=== PATIENT | female | born 1940 | race Caucasian/White ===

== ENCOUNTER 2016-10-18 19:12 | Emergency (ER) | payer OTHER, MEDICAID ==
[~2016-10-18] VITALS: Ht 167.6 cm; Wt 63.5 kg
[2016-10-18] MEDS ORDERED: BUSP5TA (19:28)
[2016-10-18] MEDS ORDERED: LOSA50TA20 (19:28)
[2016-10-18] MEDS ORDERED: NITR0.4S14 PO (19:28)
[2016-10-18] MEDS ORDERED: GABA-282 (19:28)
[2016-10-18] MEDS ORDERED: NITR0.4D6 (19:28)
[2016-10-18] MEDS ORDERED: OMEP40CA2 (19:28)
[2016-10-18] MEDS ORDERED: AMLO5TAB2 (19:28)
[2016-10-18] MEDS ORDERED: CARV6.25 (19:28)
[2016-10-18] MEDS ORDERED: PRAV80TA2 PO (19:28)
[2016-10-18 21:47] LABS: INR 1.04
[2016-10-18 21:53] LABS: BASO % 0.2 % (0.0-1.0); EOS % 0.2 % (0.0-3.0); LARGE UNSTAINED CELL # 0.1 K/mm3 (0.0-0.4); LARGE UNSTAINED CELL % 0.7 % (0.0-4.0); LYMPH # 0.6 K/mm3 (1.5-4.5); LYMPH % 6.9 % (24.0-44.0); MEAN CORPUSCULAR HEMOGLOBIN 29.2 pg (27.0-33.0); MEAN CORPUSCULAR VOLUME 91.2 fl (80.0-96.0); MONO # 0.3 K/mm3 (0.0-0.8); MONO % 3.5 % (0.0-5.0); NEUTROPHILS # 6.8 K/mm3 (1.8-7.7); NEUTROPHILS % 88.5 % (36.0-66.0); PLATELET COUNT, AUTOMATED 167 k/mm3 (150-450); WHITE BLOOD COUNT 7.7 K/mm3 (4.0-10.0)
[2016-10-18 22:08] LABS: ANION GAP 7 MEQ/L (8-16); BLOOD UREA NITROGEN 11 MG/DL (7-18); CALCIUM LEVEL 7.8 MG/DL (8.8-10.2); CARBON DIOXIDE LEVEL 24 MEQ/L (21-32); CHLORIDE LEVEL 110 MEQ/L (98-107); CREATININE FOR GFR 0.57 MG/DL (0.55-1.02); GLOMERULAR FILTRATION RATE > 60.0 (>39); GLUCOSE, FASTING 108 MG/DL (83-110); MAGNESIUM LEVEL 1.9 MG/DL (1.8-2.4); POTASSIUM SERUM 3.6 MEQ/L (3.5-5.1); SODIUM LEVEL 141 MEQ/L (136-145)
[2016-10-18 23:41] VITALS: O2SAT 98
[2016-10-19 00:30] VITALS: BP 132/78
[2016-10-19] MEDS ORDERED: VALI2TAB PO (00:39)
--- NOTE | 2016-10-19 09:19 | ECGEPIP ---
Stationary ECG Study [facility] - ED Test Date: 2016-10-18 Pat Name: BONNIE ROGER Department: Room: - Gender: F Field Sales Executive: AlcantarB: 1940 Requested By: DELFINO Becker Order Number: [id number] Reading MD: Donald Davidson Measurements Intervals [place] Rate: 86 P: 48 NH: 141 QRS: 5 QRSD: 89 T: 9 QT: 358 QTc: 430 Interpretive Statements SINUS RHYTHM NO PRIORS Electronically Signed On 10-19-2016 9:19:45 EDT by Donald Davidson
--- NOTE | 2016-10-19 14:49 | REP ---
Clinical: Dizziness. Comparison: None. Findings: Age-related atrophy and microvascular ischemic changes are appreciated. The ventricles and sulci are symmetric. Hurd-white differentiation is maintained. There is no evidence for acute intracranial hemorrhage, mass/mass effect, pathology or infarction. No extra-axial fluid collection. Calvarium is intact. Paranasal sinuses and mastoid air cells are clear. Impression: Age related atrophy and microvascular ischemic changes. No acute intracranial hemorrhage, infarction, or mass/mass effect. Signed by Dontae Waite MD 10/19/2016 02:40 P
== END 2016-10-19 00:55 | disposition home or self-care (01) ==
LOC: M ED 20:55
DX: R42 Dizziness and giddiness (principal); M54.2 Cervicalgia; E11.9 Type 2 diabetes mellitus without complications; Z79.899 Other long term (current) drug therapy
CPT/HCPCS: 36415; 70450; 80053; 81001; 82043; 82550; 82553; 83036; 83735; 84484; 85025; 85610; 85730; 87086; 93005; 96374; 99284; J3360

== ENCOUNTER → 2016-10-18 | Outpatient (REF) | payer OTHER, MEDICAID ==
[~2016-10-18] MED LIST: AMLO5TAB2; BUSP5TA; CARV6.25; GABA-282; LOSA50TA20; NITR0.4D6; NITR0.4S14 PO; OMEP40CA2; PRAV80TA2 PO; VALI2TAB PO
[2016-10-18 12:09] LABS: ALBUMIN 3.5 GM/DL (3.2-5.2); ALBUMIN/GLOBULIN RATIO 1.09 (1.00-1.93); ALKALINE PHOSPHATASE 84 U/L (45-117); ALT/SGPT 19 U/L (12-78); ANION GAP 8 MEQ/L (8-16); AST/SGOT 13 U/L (15-37); BILIRUBIN,TOTAL 0.3 MG/DL (0.2-1.0); BLOOD UREA NITROGEN 13 MG/DL (7-18); CARBON DIOXIDE LEVEL 25 MEQ/L (21-32); CHLORIDE LEVEL 109 MEQ/L (98-107); CREATININE FOR GFR 0.66 MG/DL (0.55-1.02); GLOMERULAR FILTRATION RATE > 60.0 (>39); GLUCOSE, FASTING 179 MG/DL (83-110); POTASSIUM SERUM 4.2 MEQ/L (3.5-5.1); SODIUM LEVEL 142 MEQ/L (136-145); TOTAL PROTEIN 6.7 GM/DL (6.4-8.2)
== END ==
LOC: M SFHCPLAZ 08:03
PROVIDERS: ATTEND Family Medicine
DX: E11.9 Type 2 diabetes mellitus without complications (principal)

== ENCOUNTER → 2017-02-09 | Outpatient (CLI) | payer OTHER, MEDICAID ==
[~2017-02-09] MED LIST changes: -AMLO5TAB2; +AMLO5TAB2 PO; -BUSP5TA; +BUSP5TA PO; -CARV6.25; +CARV6.25 PO; +FERR325T3 PO; -GABA-282; +GABA-282 PO; +GABA600T PO; -LOSA50TA20; +LOSA50TA20 PO; -NITR0.4D6; +NITR0.4D6 TOP; -OMEP40CA2; +OMEP40CA2 PO; +RANI1TAB38 PO; +TUMS500C PO
[2017-02-09 18:29] LABS: BASO % 0.5 % (0.0-1.0); EOS # 0.1 K/mm3 (0.0-0.50); EOS % 1.9 % (0.0-3.0); LARGE UNSTAINED CELL # 0.1 K/mm3 (0.0-0.4); LARGE UNSTAINED CELL % 1.5 % (0.0-4.0); LYMPH % 14.2 % (24.0-44.0); MEAN CORPUSCULAR HEMOGLOBIN 29.1 pg (27.0-33.0); MEAN CORPUSCULAR HGB CONC 31.7 g/dl (32.0-36.5); MEAN CORPUSCULAR VOLUME 91.7 fl (80.0-96.0); MONO # 0.4 K/mm3 (0.0-0.8); MONO % 6.1 % (0.0-5.0); NEUTROPHILS # 4.8 K/mm3 (1.8-7.7); NEUTROPHILS % 75.8 % (36.0-66.0); PLATELET COUNT, AUTOMATED 182 k/mm3 (150-450); RED CELL DISTRIBUTION WIDTH 15.2 % (11.5-14.5); WHITE BLOOD COUNT 6.4 K/mm3 (4.0-10.0)
[2017-02-09 18:49] LABS: ALBUMIN/GLOBULIN RATIO 1.18 (1.00-1.93); ALKALINE PHOSPHATASE 73 U/L (45-117); ALT/SGPT 22 U/L (12-78); ANION GAP 7 MEQ/L (8-16); AST/SGOT 15 U/L (15-37); BILIRUBIN,TOTAL 0.4 MG/DL (0.2-1.0); BLOOD UREA NITROGEN 14 MG/DL (7-18); CALCIUM LEVEL 8.9 MG/DL (8.8-10.2); CARBON DIOXIDE LEVEL 27 MEQ/L (21-32); CHLORIDE LEVEL 109 MEQ/L (98-107); CHOLESTEROL LEVEL 182 MG/DL (<200); CREATININE FOR GFR 0.76 MG/DL (0.55-1.02); GLOMERULAR FILTRATION RATE > 60.0 (>39); GLUCOSE, FASTING 186 MG/DL (83-110); POTASSIUM SERUM 4.8 MEQ/L (3.5-5.1); SODIUM LEVEL 143 MEQ/L (136-145); TOTAL PROTEIN 7.4 GM/DL (6.4-8.2); TRIGLYCERIDES LEVEL 251 MG/DL (<150)
== END ==
LOC: M SMT 13:48
PROVIDERS: ATTEND Family Medicine
DX: R19.7 Diarrhea, unspecified (principal); E78.5 Hyperlipidemia, unspecified

== ENCOUNTER → 2017-02-11 | Outpatient (REF) | payer OTHER, MEDICAID | LOC: M LAB REF 15:17 | PROVIDERS: ATTEND Family Medicine | DX: R19.7 Diarrhea, unspecified (principal); K92.1 Melena ==

== ENCOUNTER → 2017-02-23 | Outpatient (CLI) | payer OTHER, MEDICAID ==
--- NOTE | 2017-02-23 22:04 | REP ---
Clinical: Left-sided sciatica. Technique: AP, lateral, bilateral oblique, flexion/extension, and coned-down views of the lumbosacral spine. Comparison: 04/22/2015. Findings: Moderate to advanced multilevel degenerative disc osteophyte complexes are appreciated primarily involving the L3-4, L4-5, and L5-S1 levels. Findings include hypertrophic facet changes, marginal osteophytes, endplate sclerosis, disc space narrowing, and chronic, stable grade 1 anterolisthesis at the L4-5 level of approximately 3 mm. No acute fracture / compression injury. Impression: Moderate to advanced multilevel degenerative changes as described above including chronic grade 1 anterolisthesis at the L4-5 level which remain stable. Signed by Dontae Waite MD 02/23/2017 09:56 P
== END ==
LOC: M SMT 13:58
PROVIDERS: ATTEND Family Medicine
DX: M54.32 Sciatica, left side (principal)

== ENCOUNTER 2017-04-07 09:50 | Outpatient (CLI) | payer OTHER, MEDICAID ==
[~2017-04-07] VITALS: Ht 165.1 cm; Wt 63.5 kg
[2017-04-07] MEDS ORDERED: PROPOFOL 500 MG/50 ML VIAL As Ordered ONE (09:53)
[2017-04-07] MEDS ORDERED: NS 1,000 ML IV ONE (10:00)
[2017-04-07] MEDS ORDERED: LIDOCAINE 2% INJ 100 MG/5 ML SDV (FOR ANES.) As Ordered ONE (10:08)
[2017-04-07] MEDS ORDERED: NS 1,000 ML IV SCH (10:30)
--- NOTE | 2017-04-07 10:57 | ROOR ---
Patient Name: Ashley Wang Procedure Date: 04/07/2017 10:30 AM Date of : 1940 Age: 77 Room: [facility] Gender: Female Note Status: Finalized Procedure: Upper GI endoscopy Indications: Iron deficiency anemia Providers: Ever Yan Jr, MD Referring MD: Ines ALVAREZ DO Requesting Provider: Medicines: Propofol per Anesthesia Complications: No immediate complications. Procedure: Pre-Anesthesia Assessment: - Prior to the procedure, a History and Physical was performed, and patient medications and allergies were reviewed. The patient is competent. The risks and benefits of the procedure and the sedation options and risks were discussed with the patient. All questions were answered and informed consent was obtained. Patient identification and proposed procedure were verified by the physician and the nurse in the pre-procedure area and in the procedure room. Mental Status Examination: alert and oriented. Airway Examination: normal oropharyngeal airway and neck mobility. Respiratory Examination: clear to auscultation. CV Examination: normal. ASA Grade Assessment: II - A patient with mild systemic disease. After reviewing the risks and benefits, the patient was deemed in satisfactory condition to undergo the procedure. The anesthesia plan was to use moderate sedation / analgesia (conscious sedation). Immediately prior to administration of medications, the patient was re-assessed for adequacy to receive sedatives. The heart rate, respiratory rate, oxygen saturations, blood pressure, adequacy of pulmonary ventilation, and response to care were monitored throughout the procedure. The physical status of the patient was re-assessed after the procedure. The Endoscope was introduced through the mouth, and advanced to the second part of duodenum. The upper GI endoscopy was accomplished without difficulty. The patient tolerated the procedure well. Findings: The upper third of the esophagus, middle third of the esophagus and lower third of the esophagus were normal. A small hiatal hernia was present. The cardia, gastric fundus and gastric body were normal. Striped mildly erythematous mucosa was found in the gastric antrum and in the prepyloric region of the stomach. Biopsies were taken with a cold forceps for histology. The duodenal bulb, first portion of the duodenum and second portion of the duodenum were normal. Impression: - Normal upper third of esophagus, middle third of esophagus and lower third of esophagus. - Small hiatal hernia. - Normal cardia, gastric fundus and gastric body. - Erythematous mucosa in the antrum and prepyloric region of the stomach. Biopsied. - Normal duodenal bulb, first portion of the duodenum and second portion of the duodenum. Recommendation: - Discharge patient to home (ambulatory). - Return to my office in 10 years. Ever Yan MD Ever Yan Jr, MD 04/07/2017 10:57:23 AM This report has been signed electronically. Number of Addenda: 0 Note Initiated On: 04/07/2017 10:30 AM Estimated Blood Loss: Estimated blood loss: none.
--- NOTE | 2017-04-07 11:00 | ROOR ---
Patient Name: Ashley Wang Procedure Date: 04/07/2017 10:31 AM Date of : 1940 Age: 77 Room: [facility] Gender: Female Note Status: Finalized Procedure: Colonoscopy Indications: Change in bowel habits Providers: Ever Yan Jr, MD Referring MD: Ines ALVAREZ DO Requesting Provider: Medicines: Propofol per Anesthesia Complications: No immediate complications. Procedure: Pre-Anesthesia Assessment: - Prior to the procedure, a History and Physical was performed, and patient medications and allergies were reviewed. The patient is competent. The risks and benefits of the procedure and the sedation options and risks were discussed with the patient. All questions were answered and informed consent was obtained. Patient identification and proposed procedure were verified by the physician and the nurse in the pre-procedure area and in the procedure room. Mental Status Examination: alert and oriented. Airway Examination: normal oropharyngeal airway and neck mobility. Respiratory Examination: clear to auscultation. CV Examination: normal. ASA Grade Assessment: II - A patient with mild systemic disease. After reviewing the risks and benefits, the patient was deemed in satisfactory condition to undergo the procedure. The anesthesia plan was to use moderate sedation / analgesia (conscious sedation). Immediately prior to administration of medications, the patient was re-assessed for adequacy to receive sedatives. The heart rate, respiratory rate, oxygen saturations, blood pressure, adequacy of pulmonary ventilation, and response to care were monitored throughout the procedure. The physical status of the patient was re-assessed after the procedure. The Colonoscope was introduced through the anus and advanced to the cecum, identified by appendiceal orifice and ileocecal valve. The colonoscopy was performed without difficulty. The patient tolerated the procedure well. The quality of the bowel preparation was adequate and good. Findings: A few small-mouthed diverticula were found in the sigmoid colon. The rectum, recto-sigmoid colon, descending colon, transverse colon, ascending colon, cecum, appendiceal orifice and ileocecal valve appeared normal. Impression: - Diverticulosis in the sigmoid colon. - The rectum, recto-sigmoid colon, descending colon, transverse colon, ascending colon, cecum, appendiceal orifice and ileocecal valve are normal. - No specimens collected. Recommendation: - Discharge patient to home (ambulatory). - Repeat colonoscopy in 10 years for screening purposes. Ever Yan MD Ever Yan Jr, MD 04/07/2017 10:59:38 AM This report has been signed electronically. Number of Addenda: 0 Note Initiated On: 04/07/2017 10:31 AM Estimated Blood Loss: Estimated blood loss: none.
[2017-04-07 11:20] VITALS: BP 150/67
== END 2017-04-07 11:34 | disposition home or self-care (01) ==
LOC: M OPP 09:50
PROVIDERS: ATTEND Surgery
DX: R19.4 Change in bowel habit (principal); R19.5 Other fecal abnormalities; K25.9 Gastric ulcer, unspecified as acute or chronic, without hemorrhage or perforation; K57.30 Diverticulosis of large intestine without perforation or abscess without bleeding; D50.9 Iron deficiency anemia, unspecified; K29.70 Gastritis, unspecified, without bleeding; K21.9 Gastro-esophageal reflux disease without esophagitis; K44.9 Diaphragmatic hernia without obstruction or gangrene; K31.89 Other diseases of stomach and duodenum; R07.89 Other chest pain; I10 Essential (primary) hypertension; E78.5 Hyperlipidemia, unspecified; Z85.3 Personal history of malignant neoplasm of breast; Z85.41 Personal history of malignant neoplasm of cervix uteri; Z92.21 Personal history of antineoplastic chemotherapy; R73.03 Prediabetes; Z87.19 Personal history of other diseases of the digestive system; R12 Heartburn; R15.1 Fecal smearing; R51 Headache; R06.83 Snoring; Z90.12 Acquired absence of left breast and nipple; Z79.899 Other long term (current) drug therapy; Z87.891 Personal history of nicotine dependence; Z80.1 Family history of malignant neoplasm of trachea, bronchus and lung

== ENCOUNTER → 2017-04-14 | Outpatient (CLI) | payer OTHER, MEDICAID ==
[2017-04-14 19:45] LABS: BASO % 0.4 % (0.0-1.0); EOS # 0.1 10^3/uL (0.0-0.50); EOS % 1.8 % (0.0-3.0); IMMATURE GRANULOCYTE % 0.2 % (0-0); LYMPH # 1.1 10^3/uL (1.5-4.5); LYMPH % 19.6 % (24.0-44.0); MEAN CORPUSCULAR HEMOGLOBIN 30.4 pg (27.0-33.0); MEAN CORPUSCULAR HGB CONC 31.9 g/dl (32.0-36.5); MEAN CORPUSCULAR VOLUME 95.3 fl (80.0-96.0); MONO # 0.4 10^3/uL (0.0-0.8); MONO % 7.9 % (0.0-5.0); NEUTROPHILS # 3.9 10^3/uL (1.8-7.7); NEUTROPHILS % 70.1 % (36.0-66.0); PLATELET COUNT, AUTOMATED 182 10^3/uL (150-450); RED CELL DISTRIBUTION WIDTH 14.6 % (11.5-14.5); WHITE BLOOD COUNT 5.6 10^3/uL (4.0-10.0)
[2017-04-14 20:30] LABS: FERRITIN 31 NG/ML (8-252)
== END ==
LOC: M SMT 14:07
PROVIDERS: ATTEND Family Medicine
DX: D50.9 Iron deficiency anemia, unspecified (principal)

== ENCOUNTER → 2017-06-09 | Outpatient (CLI) | payer OTHER, MEDICAID ==
--- NOTE | 2017-06-09 16:31 | REP ---
Right breast mammogram: The patient has a left mastectomy. There are no palpable abnormalities or other breast complaints. The patient states that she has not had a clinical breast exam in over a year. Comparison is 05/14/2014. There is focal very dense breast parenchyma in the subareolar zones. This is unchanged. The remainder of the breast parenchyma is predominately adipose. There is a benign calcification within the dense breast parenchyma. This is unchanged. There has been no interval development of masses, areas of structural distortion or clusters of microcalcifications typical of malignancy. IMPRESSION: BIRADS category 2 benign findings. The patient should have a repeat mammogram in 1 year. This mammogram was interpreted with the aid of an FDA-approved computer-aided detection system. A. Negative x-ray reports should not delay biopsy if a dominant or clinically suspicious mass is present. B. Not all breast cancers are identified by x-ray. C. Adenosis and dense breasts may obscure an underlying neoplasm The patient letter being requested is M1.
== END ==
LOC: M WHC 14:06
PROVIDERS: ATTEND Family Medicine
DX: Z12.31 Encounter for screening mammogram for malignant neoplasm of breast (principal); Z90.12 Acquired absence of left breast and nipple

== ENCOUNTER → 2018-01-09 | Outpatient (CLI) | payer OTHER, MEDICAID ==
[2018-01-09 13:44] LABS: ANION GAP 8 MEQ/L (8-16); BLOOD UREA NITROGEN 15 MG/DL (7-18); CALCIUM LEVEL 8.5 MG/DL (8.8-10.2); CARBON DIOXIDE LEVEL 25 MEQ/L (21-32); CHLORIDE LEVEL 111 MEQ/L (98-107); CHOLESTEROL LEVEL 165 MG/DL (<200); CHOLESTEROL RISK RATIO 4.024 (<5); CREATININE FOR GFR 0.99 MG/DL (0.55-1.30); GLOMERULAR FILTRATION RATE 57.6 (>39); GLUCOSE, FASTING 130 MG/DL (70-100); HDL CHOLESTEROL 41 MG/DL (>40); NON-HDL-C 124 MG/DL; POTASSIUM SERUM 4.2 MEQ/L (3.5-5.1); SODIUM LEVEL 144 MEQ/L (136-145); TRIGLYCERIDES LEVEL 130 MG/DL (<150)
[2018-01-09 14:01] LABS: CREATININE, URINE 57.1 MG/DL; MALB URINE SIEMENS 60.2 MG/L; MAU/CREAT RATIO 105.4 MCG/MG (0.0-30.0)
== END ==
LOC: M SMT 09:35
DX: E11.65 Type 2 diabetes mellitus with hyperglycemia (principal); E78.2 Mixed hyperlipidemia; D50.9 Iron deficiency anemia, unspecified
CPT/HCPCS: 80061

== ENCOUNTER → 2018-01-10 | Outpatient (REF) | payer OTHER, MEDICAID ==
[2018-01-10 12:25] LABS: BASO % 0.6 % (0.0-1.0); EOS # 0.2 10^3/uL (0.0-0.50); EOS % 3.7 % (0.0-3.0); HEMATOCRIT 36.4 % (36.0-47.0); HEMOGLOBIN 11.7 g/dl (12.0-15.5); IMMATURE GRANULOCYTE % 0.2 % (0-3.0); LYMPH # 1.1 10^3/uL (1.5-4.5); MEAN CORPUSCULAR HEMOGLOBIN 30.5 pg (27.0-33.0); MEAN CORPUSCULAR HGB CONC 32.1 g/dl (32.0-36.5); MONO # 0.4 10^3/uL (0.0-0.8); MONO % 8.2 % (0.0-5.0); NEUTROPHILS # 3.6 10^3/uL (1.8-7.7); NEUTROPHILS % 66.3 % (36.0-66.0); PLATELET COUNT, AUTOMATED 162 10^3/uL (150-450); RED BLOOD COUNT 3.83 10^6/uL (4.00-5.40); RED CELL DISTRIBUTION WIDTH 12.6 % (11.5-14.5); WHITE BLOOD COUNT 5.4 10^3/uL (4.0-10.0)
[2018-01-10 13:27] LABS: ESTIMATED AVERAGE GLUCOSE 163 MG/DL (60-110); HEMOGLOBIN A1c 7.3 %
== END ==
LOC: M LABDRAW1 12:05
DX: E11.65 Type 2 diabetes mellitus with hyperglycemia (principal); E78.2 Mixed hyperlipidemia; D50.9 Iron deficiency anemia, unspecified
CPT/HCPCS: 83036

== ENCOUNTER → 2018-02-13 | Outpatient (CLI) | payer OTHER, MEDICAID | LOC: M SMT 13:01 | DX: M79.671 Pain in right foot (principal) | CPT/HCPCS: 84550 ==

== ENCOUNTER → 2018-04-11 | Outpatient (CLI) | payer OTHER, MEDICAID ==
[2018-04-11 13:38] LABS: ALBUMIN 3.8 GM/DL (3.2-5.2); ALKALINE PHOSPHATASE 93 U/L (45-117); ALT/SGPT 16 U/L (12-78); ANION GAP 7 MEQ/L (8-16); AST/SGOT 12 U/L (7-37); BILIRUBIN,TOTAL 0.4 MG/DL (0.2-1.0); BLOOD UREA NITROGEN 14 MG/DL (7-18); CALCIUM LEVEL 8.4 MG/DL (8.8-10.2); CARBON DIOXIDE LEVEL 29 MEQ/L (21-32); CHLORIDE LEVEL 108 MEQ/L (98-107); CREATININE FOR GFR 0.89 MG/DL (0.55-1.30); GLOMERULAR FILTRATION RATE > 60.0 (>32); GLUCOSE, FASTING 127 MG/DL (70-100); POTASSIUM SERUM 4.3 MEQ/L (3.5-5.1); SODIUM LEVEL 144 MEQ/L (136-145); TOTAL PROTEIN 7.6 GM/DL (6.4-8.2)
[2018-04-11 13:54] LABS: ESTIMATED AVERAGE GLUCOSE 157 MG/DL (60-110); HEMOGLOBIN A1c 7.1 %
== END ==
LOC: M SMT 09:42
DX: E11.65 Type 2 diabetes mellitus with hyperglycemia (principal)
CPT/HCPCS: 80053

== ENCOUNTER → 2018-06-15 | Outpatient (CLI) | payer OTHER, MEDICAID ==
[~2018-06-15] MED LIST changes: -AMLO5TAB2 PO; +AMLO5TAB4 PO; -GABA-282 PO; +GABA-843 PO; -LOSA50TA20 PO; +LOSA50TA73 PO
--- NOTE | 2018-06-15 16:17 | REPMRS ---
Patient History The patient states she has not had a clinical breast exam in over a year. Family history of breast cancer at age 49 in daughter. Reconstruction of the left breast, 1978. Malignant mastectomy of the left breast, 1978. Digital Woman Screen Mammo: June 15, 2018 - Exam #: [id number] Bilateral CC and MLO view(s) were taken. Technologist: Ernestine Bartlett Technologist Prior study comparison: June 09, 2017, digital woman screen mammo performed at [facility]. June 08, 2016, digital woman screen mammo performed at [facility]. May 26, 2015, digital woman screen mammo performed at [facility]. FINDINGS: There are scattered fibroglandular densities. There has been no change in the appearance of the right breast parenchyma in the interval since the prior examination. No mass, architectural distortion, or microcalcific cluster has developed. No suspicious finding. 3-D tomosynthesis shows no additional findings. Assessment: BI-RADS/ACR category 2 mammogram. Benign finding(s). Recommendation Routine screening mammogram of the right breast in 1 year. This mammogram was interpreted with the aid of an FDA-approved computer-aided dectection system. Electronically Signed By: Jared Garcia MD 06/15/18 [id number]
== END ==
LOC: M WHC 15:16
PROVIDERS: ATTEND Family Medicine
DX: Z12.31 Encounter for screening mammogram for malignant neoplasm of breast (principal); Z85.3 Personal history of malignant neoplasm of breast; Z80.3 Family history of malignant neoplasm of breast; Z90.12 Acquired absence of left breast and nipple

== ENCOUNTER → 2018-08-28 | Outpatient (CLI) | payer MEDICARE, MEDICAID ==
[~2018-08-28] MED LIST changes: -AMLO5TAB4 PO; +AMLO5TAB6 PO; -GABA600T PO; +GABA600T4 PO; -LOSA50TA73 PO; +LOSA50TA88 PO
[2018-08-28 12:18] LABS: ALBUMIN 3.8 GM/DL (3.2-5.2); ALT/SGPT 20 U/L (12-78); BILIRUBIN,TOTAL 0.4 MG/DL (0.2-1.0); BLOOD UREA NITROGEN 18 MG/DL (7-18); CALCIUM LEVEL 8.4 MG/DL (8.8-10.2); CARBON DIOXIDE LEVEL 27 MEQ/L (21-32); CHLORIDE LEVEL 110 MEQ/L (98-107); CREATININE FOR GFR 0.89 MG/DL (0.55-1.30); FERRITIN 80 NG/ML (8-252); GLOMERULAR FILTRATION RATE > 60.0 (>32); GLUCOSE, FASTING 129 MG/DL (70-100); IRON (FE) 60 UG/DL (50-170); PERCENT SATURATION 20.1 % (13.2-45.0); POTASSIUM SERUM 4.7 MEQ/L (3.5-5.1); SODIUM LEVEL 145 MEQ/L (136-145); TOTAL IRON BINDING CAPACITY 299 UG/DL (250-450); TOTAL PROTEIN 7.4 GM/DL (6.4-8.2)
[2018-08-28 12:22] LABS: BASO % 0.5 % (0.0-1.0); EOS # 0.1 10^3/uL (0.0-0.50); EOS % 2.3 % (0.0-3.0); HEMOGLOBIN 11.4 g/dl (12.0-15.5); LYMPH % 18.3 % (24.0-44.0); MEAN CORPUSCULAR HEMOGLOBIN 29.5 pg (27.0-33.0); MEAN CORPUSCULAR HGB CONC 31.7 g/dl (32.0-36.5); MONO # 0.5 10^3/uL (0.0-0.8); MONO % 8.3 % (0.0-5.0); NEUTROPHILS # 3.9 10^3/uL (1.8-7.7); NEUTROPHILS % 70.2 % (36.0-66.0); PLATELET COUNT, AUTOMATED 166 10^3/uL (150-450); RED BLOOD COUNT 3.87 10^6/uL (4.00-5.40); WHITE BLOOD COUNT 5.6 10^3/uL (4.0-10.0)
[2018-08-28 12:32] LABS: HEMOGLOBIN A1c 6.7 %
[2018-08-28 14:13] LABS: CREATININE, URINE 77.2 MG/DL; MALB URINE SIEMENS 25.5 MG/L
== END ==
LOC: M SMT 09:20
PROVIDERS: ATTEND Family Medicine
DX: E11.65 Type 2 diabetes mellitus with hyperglycemia (principal); D50.9 Iron deficiency anemia, unspecified; E78.2 Mixed hyperlipidemia; K21.9 Gastro-esophageal reflux disease without esophagitis

== ENCOUNTER 2018-11-01 15:47 | Observation (INO) | payer MEDICARE, MEDICAID ==
[~2018-11-01] VITALS: Ht 165.1 cm; Wt 63.5 kg
[2018-11-01] MEDS ORDERED: ACETAMINOPHEN TAB 650MG DOSE (2X325MG) PO ONE (16:15)
[2018-11-01] MEDS ORDERED: NS 1,000 ML IV ONE (16:15)
[2018-11-01] MEDS ORDERED: ONDANSETRON 4MG/2ML VIAL (J2405) IV ONE (16:30)
--- NOTE | 2018-11-01 16:35 | REP ---
PORTABLE CHEST: AP portable view of the chest is performed and compared to prior study of 05/09/2009. There is mild elevation of the right hemidiaphragm unchanged. No acute infiltrate is seen. Heart is not enlarged. There is calcification and tortuosity of the thoracic aorta. There are multiple metallic clips in the left axillary region. There is a left breast implant. IMPRESSION: No acute infiltrate. Electronically Signed by Samuel Hurd MD 11/01/2018 04:48 P
[2018-11-01 16:43] LABS: BASO % 0.2 % (0.0-1.0); EOS % 0.1 % (0.0-3.0); HEMOGLOBIN 11.5 g/dl (12.0-15.5); LYMPH # 0.7 10^3/uL (1.5-4.5); LYMPH % 6.2 % (24.0-44.0); MEAN CORPUSCULAR HEMOGLOBIN 30.7 pg (27.0-33.0); MEAN CORPUSCULAR HGB CONC 32.9 g/dl (32.0-36.5); MEAN CORPUSCULAR VOLUME 93.3 fl (80.0-96.0); MONO # 1.1 10^3/uL (0.0-0.8); NEUTROPHILS # 8.7 10^3/uL (1.8-7.7); NEUTROPHILS % 83.2 % (36.0-66.0); PLATELET COUNT, AUTOMATED 170 10^3/uL (150-450); RED BLOOD COUNT 3.75 10^6/uL (4.00-5.40); WHITE BLOOD COUNT 10.5 10^3/uL (4.0-10.0)
[2018-11-01 17:19] LABS: INFLUENZA A AMPLIFICATION NEGATIVE (NEGATIVE); INFLUENZA B AMPLIFICATION NEGATIVE (NEGATIVE)
[2018-11-01 17:23] LABS: ALBUMIN 3.5 GM/DL (3.2-5.2); ALT/SGPT 18 U/L (12-78); BILIRUBIN,DIRECT 0.2 MG/DL (0.0-0.2); BILIRUBIN,TOTAL 0.6 MG/DL (0.2-1.0); BLOOD UREA NITROGEN 13 MG/DL (7-18); CALCIUM LEVEL 8.5 MG/DL (8.8-10.2); CARBON DIOXIDE LEVEL 24 MEQ/L (21-32); CHLORIDE LEVEL 105 MEQ/L (98-107); CK-MB VALUE MASS < 1.0 NG/ML (<3.6); CPK CREATINE PHOSPHOKINASE 66 U/L (26-192); CREATININE FOR GFR 0.82 MG/DL (0.55-1.30); GLOMERULAR FILTRATION RATE > 60.0 (>32); GLUCOSE, FASTING 167 MG/DL (70-100); LIPASE 135 U/L (73-393); MB/CK RELATIVE INDEX 1.52 (< OR =4); POTASSIUM SERUM 3.9 MEQ/L (3.5-5.1); SODIUM LEVEL 136 MEQ/L (136-145); TOTAL PROTEIN 7.3 GM/DL (6.4-8.2); TROPONIN I < 0.02 NG/ML (< 0.10)
[2018-11-01] MEDS ORDERED: ISOVUE-370 76% 100ML VIAL (Q9967) As Ordered ONE (18:13)
[2018-11-01] MEDS ORDERED: cefTRIAXone SOD 1 GM in D5W MINI-BAG PLUS 50 ML IV ONE (18:15)
--- NOTE | 2018-11-01 19:02 | REPVR ---
EXAM: CT Head Without Contrast EXAM DATE/TIME: 11/01/2018 6:22 PM CLINICAL HISTORY: 78 years old, female; Pain; Headache; Additional info: Headache and confusion TECHNIQUE: Imaging protocol: Axial computed tomography images of the head/brain without contrast. Radiation optimization: All CT scans at this facility use at least one of these dose optimization techniques: automated exposure control; mA and/or kV adjustment per patient size (includes targeted exams where dose is matched to clinical indication); or iterative reconstruction. COMPARISON: CT Head without contrast 10/18/2016 9:25 PM FINDINGS: Brain: Mild low density in the periventricular white matter extending into the thorpe radiata and the centrum semiovale bilaterally. No hemorrhage. Mild age-appropriate atrophy Ventricles: Normal. No ventriculomegaly. Bones/joints: Unremarkable. No acute fracture. Sinuses: Visualized sinuses are unremarkable. No acute sinusitis. Mastoid air cells: Visualized mastoid air cells are unremarkable. No mastoid effusion. Soft tissues: Unremarkable. IMPRESSION: 1. No acute findings 2. Mild chronic microvascular ischemic change in the deep white matter Electronically signed by: Zora Fung On 11/01/2018 19:02:33 PM
--- NOTE | 2018-11-01 19:17 | REPVR ---
EXAM: CT Abdomen and Pelvis With Contrast EXAM DATE/TIME: 11/01/2018 6:22 PM CLINICAL HISTORY: 78 years old, female; Abdominal pain; Generalized; Prior surgery TECHNIQUE: Imaging protocol: Axial computed tomography images of the abdomen and pelvis with intravenous contrast. Coronal and sagittal reformatted images were created and reviewed. Radiation optimization: All CT scans at this facility use at least one of these dose optimization techniques: automated exposure control; mA and/or kV adjustment per patient size (includes targeted exams where dose is matched to clinical indication); or iterative reconstruction. Contrast material: ISOVUE 370; Contrast volume: 100 ml; Contrast route: IV; COMPARISON: No relevant prior studies available. FINDINGS: Mediastinum: There is a small sliding hiatal hernia. ABDOMEN: Liver: 9 mm simple cyst in the lateral segment of the left lobe of the liver. Gallbladder and bile ducts: Normal. No calcified stones. No ductal dilation. Pancreas: Normal. No ductal dilation. Spleen: Normal. No splenomegaly. Adrenals: 2 mm calcification in the left adrenal gland. This may be related to previous granulomatous disease. Kidneys and ureters: 4.5 mm calculus in the lower pole of the left kidney. 2.4 cm simple cyst in the lower pole of right kidney. Stomach and bowel: Sigmoid colonic diverticula. No diverticulitis a low Appendix: No evidence of appendicitis. PELVIS: Bladder: Unremarkable as visualized. Reproductive: The uterus is absent. 1.4 cm cyst in the left ovary. A small calcification is seen in the left ovary. The left ovary measures 3.1 x 1.9 x 3.3 cm. Right ovary measures 2.3 x 1.3 by approximately 1.7 cm. A calcification is noted in the right ovary. ABDOMEN and PELVIS: Intraperitoneal space: Normal. No free air. No significant fluid collection. Bones/joints: No acute fracture. No dislocation. Soft tissues: Rim calcified soft tissue mass noted in the left anterior chest wall. It's not imaged in its entirety. The portion imaged measures 4.1 x 4.9 in AP and transverse dimension. Several small rounded areas of sclerosis noted within the bony pelvis and both femurs. Grade 1 spondylolisthesis at L4-5 with 4 mm of retrolisthesis of L5 with respect to L4. Narrowing of the L5-S1 disc space. Vasculature: Normal. No abdominal aortic aneurysm. Lymph nodes: Partially calcified lymph node anterior to the right psoas noted No enlarged lymph nodes. IMPRESSION: 1. Nonobstructing calculi in the lower pole the left kidney. 2. Small sliding hiatal hernia. 3. Simple cyst in the right kidney and the liver. 4. Cysts in the left ovary. Ultrasound is recommended for characterization if clinically relevant 5. Rim calcified soft tissue mass in the left anterior chest wall not imaged in its entirety. Could represent a calcified breast implant. Fibroadenoma is another consideration. Clinical correlation needed. 6. Several tiny rounded areas of sclerosis in the axial and appendicular skeleton of uncertain significance. Clinical correlation needed. Electronically signed by: Zora Fung On 11/01/2018 19:16:38 PM
[2018-11-01 20:00] VITALS: BP 143/65
[2018-11-01] MEDS ORDERED: ACETAMINOPHEN TAB 650MG DOSE (2X325MG) PO PRN (20:30)
[2018-11-01] MEDS ORDERED: ONDANSETRON 4MG/2ML VIAL (J2405) IV PRN (20:30)
[2018-11-01] MEDS ORDERED: PHENAZOPYRIDINE 100 MG TAB PO PRN (20:30)
[2018-11-01] MEDS ORDERED: DICY10CA13 PO (20:35)
[2018-11-01] MEDS ORDERED: RANI300C PO (20:35)
[2018-11-01] MEDS ORDERED: AZEL1SPR3 NARES (20:36)
[2018-11-01] MEDS ORDERED: JANU100T PO (20:36)
--- NOTE | 2018-11-01 20:37 | ECGEPIP ---
Stationary ECG Study [facility] - ED Test Date: 2018-11-01 Pat Name: BONNIE ROGER Department: Room: - Gender: F Director Underwriter Sales: SAVANA : 1940 Requested By: VIKKI Gtz Order Number: [id number] Reading MD: Danica Ward Measurements Intervals [place] Rate: 91 P: 38 MO: 145 QRS: 5 QRSD: 88 T: 28 QT: 344 QTc: 425 Interpretive Statements SINUS RHYTHM SIMILAR 10/18/16 Electronically Signed On 11-01-2018 20:36:54 EDT by Danica Ward
[2018-11-01] MEDS ORDERED: PHARMACY COMMENT (20:38)
[2018-11-01 21:10] VITALS: BP 143/65
[2018-11-01] MEDS: HEPARIN SOD (PORCINE) 5000 UNITS/ML VIAL SC SCH (22:23)
[2018-11-01] MEDS ORDERED: DICYCLOMINE 10 MG CAP PO PRN (23:30)
[2018-11-01] MEDS ORDERED: CALCIUM CARBONATE 500 MG CHEW U/D PO PRN (23:30)
[2018-11-02] MEDS: GABAPENTIN 300 MG CAP PO SCH ×3 (00:07→20:43)
[2018-11-02] MEDS: PRAVASTATIN 20 MG TAB PO SCH ×2 (00:07→20:43)
--- NOTE | 2018-11-02 02:09 | HPEPDOC ---
General Date of Admission November 01, 2018 at 19:41 Chief Complaint The patient is a 78-year-old female admitted with a reason for visit of UTI. Source: Patient, Family Severity: Mild, Moderate Associated Symptoms: Chest Pain, Cough (non-productive), Fever, Chills, Nausea History of Present Illness Pt is a 78 yo pleasant female with PMH of DM type 2, HTN, and overactive bladder presents to [facility] ER due to 3-4 weeks of dysuria and altered mental status that suddenly started this past Tuesday. It is noted that pt had a fever of 102.6 with chills. Pt reported that she has nausea but no vomiting, denies decreased appetite. Dysuria without urgency or frequency, and pt has urine output in ER. Reported left sided dull chest pain, right lower quadrant abdominal pain 1/10, and left flank pain. Denies any suprapubic tenderness. Pt's daughter reported that she has improved mental status as she initially come in A&O to name, place, and age but not to year. Reported generalized weakness and fatigue. Pt has not received any treatment or workup prior to coming [facility]. Pt states normal appetite and wants to eat. It was noted that patient has been having severe headache for 2 weeks, and that she struck her head a few weeks ago. Home Medications Scheduled Amlodipine Besylate (Amlodipine Besylate) 5 Mg Tab, 5 MG PO DAILY, (Reported) Azelastine HCl (Azelastine HCl) 0.1% Nelson.pump, 2 SPRAY NARES BID, (Reported) Buspirone HCl (Buspirone HCl) 5 Mg Tab, 5 MG PO DAILY, (Reported) Carvedilol (Carvedilol) 6.25 Mg Tab, 6.25 MG PO BID, (Reported) Ferrous Sulfate (Ferrous Sulfate) 325 Mg Tab, 325 MG PO DAILY, (Reported) Gabapentin (Gabapentin) 300 Mg Cap, 300 MG PO DAILY, (Reported) Gabapentin (Gabapentin) 600 Mg Tab, 600 MG PO QPM, (Reported) Losartan Potassium (Losartan Potassium) 50 Mg Tab, 50 MG PO DAILY, (Reported) Omeprazole (Omeprazole) 40 Mg Cap, 40 MG PO DAILY, (Reported) Pravastatin Sodium (Pravastatin Sodium) 80 Mg Tab, 80 MG PO QPM, (Reported) Ranitidine HCl (Ranitidine HCl) 300 Mg Capsule, 1 CAP PO DAILY, (Reported) Sitagliptin Phosphate (Januvia) 100 Mg Tablet, 100 MG PO DAILY, (Reported) Scheduled PRN Calcium Carbonate (Tums) 500 Mg Chw, 500 MG PO DAILY PRN for HEARTBURN, (Reported) Dicyclomine HCl (Dicyclomine HCl) 10 Mg Capsule, 20 MG PO Q6H PRN for CONSTIPATION, (Reported) Miscellaneous Medications [Pharmacy Comment] , (Reported) PATIENT IS UNAWARE OF THE LAST TIME SHE TOOK ANY MEDICATIONS BUT WAS ABLE TO CONFIRM THAT THESE MEDS WERE CORRECT. Allergies Coded Allergies: No Known Allergies (Unverified , 11/01/18) Past Medical History Medical History Hypercholesterolemia DM type 2 HTN Vitamin D deficiency Metabolic syndrome Overactive bladder DDD L-S spine per X ray 09/02 Normal coronary cath 01/01, stress SPECT 04/2010 low risk Hx of breast cancer-left ?CAD-nuclear stress test with Dr. Malcolm 10/09. Pt was on antianginal nitroglycerin but d/c. ITB syndrome Diverticulosis Surgical History L mastectomy 1975 Colonoscopies-hyperplastic polyps only 2001 and 2005. Reported last colonscopy 2 years ago; recommended repeat in 10 years Bladder repair 1967 Breast reconstruction left 1978 EGD-gastric ulcer, benigh biopsy 03/10 Family History Significant Family History: Cancer (father) MOther-CHF, CVA/heart disease, stroke Brother-CHF, diabetes, HTN, heart disease Social History * Smoker: non-smoker Recent Travel/Sick Contacts: Denies: Recent travel A-FIB/[facility] A-FIB History Current/History of A-Fib/PAF?: No Review of Systems Constitutional: Reports: Chills, Fever, Weakness, Fatigue Pulmonary: Reports: Cough (non-productive cough for a few months); Denies: Dyspnea, Pleuritic Chest Pain Cardiovascular: Denies: Chest Pain, Palpitations Gastrointestinal: Reports: Nausea, Abdominal Pain, Other Symptoms (reported dark color stool d/t iron supplement); Denies: Vomiting, Diarrhea, Constipation Genitourinary: Reports: Dysuria; Denies: Frequency (RLQ), Incontinence, Hematuria Musculoskeletal: Reports: Other Symptoms (left sided flank pain) Neurological: Reports: Confusion (improved), Other Symptoms (denies tingling); Denies: Numbness Physical Examination General Exam: Positive: Alert, Cooperative, No Acute Distress Eye Exam: Positive: Conjunctiva & lids normal; Negative: Ptosis ENT Exam: Positive: Atraumatic, Mucous membr. moist/pink Neck Exam: Positive: Supple; Negative: JVD Chest Exam: Positive: Clear to auscultation, Normal air movement; Negative: Rales, Rhonchi, Wheezing Heart Exam: Positive: Rate Normal, Regular Rhythm, Normal S1, Normal S2; Negative: Murmurs Abdomen Exam: Positive: Normal bowel sounds, Soft, Tenderness (RLQ reported 2/10) Extremity Exam: Positive: Normal pulses; Negative: Edema, Swelling Skin Exam: Positive: Nl turgor and temperature Neuro Exam: Positive: Normal Speech, Strength at 5/5 X4 ext, Normal Tone, Sensation Intact Psych Exam: Positive: Mental status NL, Mood NL, Memory Intact, Oriented x 3 (A&O to name, place, age, and year) Other physical findings Pos CVA tenderness on right. Vital Signs Vital Signs Date Time Temp Pulse Resp B/P (MAP) Pulse Ox O2 Delivery O2 Flow Rate FiO2 11/01/18 21:10 98.1 71 17 143/65 (91) 97 11/01/18 20:45 Room Air Laboratory Data Labs 24H Laboratory Tests 2 11/01/18 16:31: Immature Granulocyte % (Auto) 0.3, White Blood Count 10.5H, Red Blood Count 3.75L, Hemoglobin 11.5L, Hematocrit 35.0L, Mean Corpuscular Volume 93.3, Mean Corpuscular Hemoglobin 30.7, Mean Corpuscular Hemoglobin Concent 32.9, Red Cell Distribution Width 13.3, Platelet Count 170, Neutrophils (%) (Auto) 83.2H, Lymphocytes (%) (Auto) 6.2L, Monocytes (%) (Auto) 10.0H, Eosinophils (%) (Auto) 0.1, Basophils (%) (Auto) 0.2, Neutrophils # (Auto) 8.7H, Lymphocytes # (Auto) 0.7L, Monocytes # (Auto) 1.1H, Eosinophils # (Auto) 0.0, Basophils # (Auto) 0.0, Nucleated Red Blood Cells % (auto) 0.0, Anion Gap 7L, Glomerular Filtration Rate > 60.0, Lactic Acid Level 1.3, Calcium Level 8.5L, Aspartate Amino Transf (AST/SGOT) 17, Alanine Aminotransferase (ALT/SGPT) 18, Alkaline Phosphatase 71, Total Bilirubin 0.6, Direct Bilirubin 0.2, Ammonia 24, Total Creatine Kinase 66, Creatine Kinase MB < 1.0, Creatine Kinase MB Relative Index 1.52, Troponin I < 0.02, Total Protein 7.3, Albumin 3.5, Albumin/Globulin Ratio 0.92L, Lipase 135, Thyroid Stimulating Hormone (TSH) 1.420, Influenza Type A (RT-PCR) NEGATIVE, Influenza Type B (RT-PCR) NEGATIVE 11/01/18 16:41: Bedside Glucose (Misc Panel) 158H 11/01/18 17:37: Urine Color YELLOW, Urine Appearance CLOUDYH, Urine pH 5.0, Urine Specific Gr avity 1.012, Urine Protein 1+H, Urine Glucose (UA) 1+H, Urine Ketones NEGATIVE, Urine Blood 2+H, Urine Nitrite POSITIVEH, Urine Bilirubin NEGATIVE, Urine Urobilinogen 2.0H, Urine Leukocyte Esterase 3+H, Urine WBC (Auto) TNTCH, Urine RBC (Auto) 22H, Urine Hyaline Casts (Auto) 0, Urine Bacteria (Auto) 3+H, Urine Squamous Epithelial Cells 0, Urine Mucus (Auto) SMALL, Urine Sperm (Auto) 11/01/18 22:37: Troponin I < 0.02 CBC/BMP Laboratory Tests 11/01/18 16:31 Red Blood Count 3.75 L, Mean Corpuscular Volume 93.3, Mean Corpuscular Hemoglobin 30.7, Mean Corpuscular Hemoglobin Concent 32.9, Red Cell Distribution Width 13.3, Neutrophils (%) (Auto) 83.2 H, Lymphocytes (%) (Auto) 6.2 L, Monocytes (%) (Auto) 10.0 H, Eosinophils (%) (Auto) 0.1, Basophils (%) (Auto) 0.2, Neutrophils # (Auto) 8.7 H, Lymphocytes # (Auto) 0.7 L, Monocytes # (Auto) 1.1 H, Eosinophils # (Auto) 0.0, Basophils # (Auto) 0.0 Microbiology Microbiology 11/01/18 Blood Culture, Received Pending 11/01/18 Blood Culture, Received Pending 11/01/18 Urine Culture, Received Pending Problems (1) Metabolic encephalopathy Status: Acute Problem Text: Metabolic encephalopathy associated with UTI. Family reported improve mental status. Pt initially not oriented to year but later was able to answer the year correctly. Pt pleasant with intact memory and cognitive function. Pt will be on Ceftraixone IV for UTI. Cont to monitor the pt closely and vital signs as scheduled. It is noted that pt has generalized weakness; PT/OT ordered. Cont home med as pt appeared to be within normal mental status. (2) UTI (urinary tract infection) Response to Treatment: Improving Problem Text: Dysuria without urgency or frequency. pt reported decreased urinary output. Pos CVA tenderness on right with left sided flank pain; however reported the back pain is chronic for her; cannot r/o pyelonephritis as pt has fever and CVA tenderness. No hydropnephrosis noted on CT abd/pelvis. Cont I&O. IV Ceftraixone 1g/24 for pt. No spurapubic tenderness but reported RLQ abdominal pain 1/10 with tenderness 2/10. Urine Cx and blood cx pending.Pyridium, Zofran and tylenol PRN. (3) Chest pain Problem Text: r/o ACS. Left sided dull chest pain with neg tropX2. No ST elevation on EKG. It is noted that pt has left sided breast implant s/p masectomy; likely chest wall pain d/t muscle strain. Cont to monitor the patient. Tylenol PRN (4) Diabetes mellitus type 2 in nonobese Problem Text: Cont home med Januvia and insulin sliding scale. FSBS AC/HS (5) HTN (hypertension) Problem Text: Cont home med Lorsartan, Cozaar, and Coreg. Pt BP roughly stable. Vital signs as scheduled. Plan / VTE VTE Prophylaxis Ordered?: Yes (heparin) Plan Diet: Continue Current Therapy: OT Diagnostics: Check Labs, Repeat Labs in AM, Obtain Cultures MIKAL SANTACRUZ DO November 02, 2018 02:09
[2018-11-02] MEDS ORDERED: DEXTROSE 50% 50 ML SYRINGE IV PRN (02:15)
[2018-11-02] MEDS ORDERED: GLUCOSE 4 GM CHEW TABLET PO PRN (02:15)
[2018-11-02] MEDS ORDERED: GLUCAGON FOR INJ 1 MG VIAL (J1610) SC PRN (02:15)
[2018-11-02] MEDS: HEPARIN SOD (PORCINE) 5000 UNITS/ML VIAL SC SCH ×3 (05:16→21:23)
[2018-11-02 06:00] VITALS: BP 147/69
[2018-11-02 06:07] LABS: HEMATOCRIT 32.5 % (36.0-47.0); HEMOGLOBIN 10.5 g/dl (12.0-15.5); MEAN CORPUSCULAR HEMOGLOBIN 29.7 pg (27.0-33.0); MEAN CORPUSCULAR HGB CONC 32.3 g/dl (32.0-36.5); MEAN CORPUSCULAR VOLUME 91.8 fl (80.0-96.0); PLATELET COUNT, AUTOMATED 165 10^3/uL (150-450); RED BLOOD COUNT 3.54 10^6/uL (4.00-5.40); WHITE BLOOD COUNT 8.6 10^3/uL (4.0-10.0)
[2018-11-02 06:35] LABS: BLOOD UREA NITROGEN 10 MG/DL (7-18); CALCIUM LEVEL 8.4 MG/DL (8.8-10.2); CARBON DIOXIDE LEVEL 25 MEQ/L (21-32); CHLORIDE LEVEL 108 MEQ/L (98-107); CREATININE FOR GFR 0.68 MG/DL (0.55-1.30); GLOMERULAR FILTRATION RATE > 60.0 (>32); GLUCOSE, FASTING 119 MG/DL (70-100); POTASSIUM SERUM 3.2 MEQ/L (3.5-5.1); SODIUM LEVEL 140 MEQ/L (136-145)
[2018-11-02] MEDS: HumaLOG INSULIN (NovoLOG) PER UNIT SC SCH ×3 (08:33→18:06)
[2018-11-02] MEDS: OMEPRAZOLE 20 MG CAP PO SCH (08:34)
[2018-11-02] MEDS: LOSARTAN 50 MG TAB PO SCH (08:34)
[2018-11-02] MEDS: raNITIdine SYRUP 150 MG/10 ML UDC PO SCH (08:34)
[2018-11-02] MEDS: CARVedilol 6.25 MG TAB PO SCH ×2 (08:34→20:43)
[2018-11-02] MEDS: busPIRone 5 MG TAB PO SCH (08:35)
[2018-11-02] MEDS: FERROUS SULFATE 325MG TAB PO SCH (08:35)
[2018-11-02] MEDS: amLODIPine 5 MG TAB PO SCH (08:35)
[2018-11-02] MEDS: SITagliptin 50 MG TAB (JANUVIA) PO SCH (08:35)
[2018-11-02] MEDS ORDERED: POTASSIUM CHLORIDE 10 MEQ SR TABLET PO ONE ×2 (09:00→15:00)
[2018-11-02 14:00] VITALS: BP 143/69
[2018-11-02] MEDS ORDERED: cefTRIAXone SOD 1 GM in D5W MINI-BAG PLUS 50 ML IV SCH (20:00)
[2018-11-02] MEDS ORDERED: HumaLOG INSULIN (NovoLOG) PER UNIT SC SCH (21:00)
[2018-11-02 22:00] VITALS: BP 141/63
[2018-11-03 05:04] LABS: HEMATOCRIT 33.3 % (36.0-47.0); HEMOGLOBIN 10.5 g/dl (12.0-15.5); MEAN CORPUSCULAR HEMOGLOBIN 29.9 pg (27.0-33.0); MEAN CORPUSCULAR HGB CONC 31.5 g/dl (32.0-36.5); MEAN CORPUSCULAR VOLUME 94.9 fl (80.0-96.0); PLATELET COUNT, AUTOMATED 185 10^3/uL (150-450); RED BLOOD COUNT 3.51 10^6/uL (4.00-5.40); WHITE BLOOD COUNT 6.5 10^3/uL (4.0-10.0)
[2018-11-03] MEDS: HEPARIN SOD (PORCINE) 5000 UNITS/ML VIAL SC SCH (05:12)
[2018-11-03 05:35] LABS: BLOOD UREA NITROGEN 11 MG/DL (7-18); CALCIUM LEVEL 8.6 MG/DL (8.8-10.2); CARBON DIOXIDE LEVEL 26 MEQ/L (21-32); CHLORIDE LEVEL 110 MEQ/L (98-107); CREATININE FOR GFR 0.78 MG/DL (0.55-1.30); GLOMERULAR FILTRATION RATE > 60.0 (>32); GLUCOSE, FASTING 116 MG/DL (70-100); POTASSIUM SERUM 3.9 MEQ/L (3.5-5.1); SODIUM LEVEL 142 MEQ/L (136-145)
[2018-11-03 05:36] LABS: ALT/SGPT 18 U/L (12-78); BILIRUBIN,TOTAL 0.3 MG/DL (0.2-1.0); BLOOD UREA NITROGEN 10 MG/DL (7-18); CALCIUM LEVEL 8.2 MG/DL (8.8-10.2); CARBON DIOXIDE LEVEL 24 MEQ/L (21-32); CHLORIDE LEVEL 109 MEQ/L (98-107); CREATININE FOR GFR 0.78 MG/DL (0.55-1.30); GLOMERULAR FILTRATION RATE > 60.0 (>32); GLUCOSE, FASTING 112 MG/DL (70-100); SODIUM LEVEL 142 MEQ/L (136-145); TOTAL PROTEIN 6.7 GM/DL (6.4-8.2)
[2018-11-03 06:00] VITALS: BP 117/61
[2018-11-03 08:00] VITALS: BP 117/61
[2018-11-03] MEDS: raNITIdine SYRUP 150 MG/10 ML UDC PO SCH (08:00)
[2018-11-03] MEDS: GABAPENTIN 300 MG CAP PO SCH (08:00)
[2018-11-03] MEDS: busPIRone 5 MG TAB PO SCH (08:00)
[2018-11-03] MEDS: CARVedilol 6.25 MG TAB PO SCH (08:00)
[2018-11-03] MEDS: LOSARTAN 50 MG TAB PO SCH (08:01)
[2018-11-03] MEDS: OMEPRAZOLE 20 MG CAP PO SCH (08:02)
[2018-11-03] MEDS: FERROUS SULFATE 325MG TAB PO SCH (08:02)
[2018-11-03] MEDS: SITagliptin 50 MG TAB (JANUVIA) PO SCH (08:02)
[2018-11-03] MEDS: amLODIPine 5 MG TAB PO SCH (08:03)
[2018-11-03] MEDS: HumaLOG INSULIN (NovoLOG) PER UNIT SC SCH (08:04)
[2018-11-03] MEDS ORDERED: KEFL500C17 PO (08:53)
--- NOTE | 2018-11-03 12:55 | DS.PDOC ---
Discharge Summary General Date of Admission November 01, 2018 at 19:41 Date of Discharge 11/03/18 Primary Care Physician: A Attending Physician: TERRA BATRES MD Discharge Summary PROCEDURES PERFORMED DURING STAY: [None]. ADMITTING DIAGNOSES: 1. [Metabolic encephalopathy. UTI]. DISCHARGE DIAGNOSES: 1. [Metabolic encephalopathy. UTI]. COMPLICATIONS/CHIEF COMPLAINT: UTI. HISTORY OF PRESENT ILLNESS: [78 years old white female was admitted with the diagnosis of metabolic encephalopathy secondary to UTI. Patient was admitted to medical floor for IV fluids and the IV antibiotics]. HOSPITAL COURSE: [ Metabolic encephalopathy associated with UTI. Family reported improve mental status. Pt initially not oriented to year but later was able to answer the year correctly. Pt pleasant with intact memory and cognitive function. Pt will be on Ceftraixone IV for UTI. Cont to monitor the pt closely and vital signs as scheduled. It is noted that pt has generalized weakness; PT/OT ordered. Cont home med as pt appeared to be within normal mental status. Dysuria without urgency or frequency. pt reported decreased urinary output. Pos CVA tenderness on right with left sided flank pain; however reported the back pain is chronic for her; cannot r/o pyelonephritis as pt has fever and CVA tenderness. No hydropnephrosis noted on CT abd/pelvis. Cont I&O. IV Ceftraixone 1g/24 for pt. No spurapubic tenderness but reported RLQ abdominal pain 1/10 with tenderness 2/10. Urine Cx and blood cx pending.Pyridium, Zofran and tylenol PRN. Patient did very well to IV hydration and IV fluid, antibiotics, which include Rocephin. Patient's urine culture is consistent with Escherichia coli which is sensitive to all antibiotics. Patient will be discharged home on by mouth Keflex. ]. DISCHARGE MEDICATIONS: Please see below. ALLERGIES: Please see below. PHYSICAL EXAMINATION ON DISCHARGE: VITAL SIGNS: Please see below. GENERAL: [Within normal limits] HEENT:. PERRLA. Extraocular muscles intact NECK: Supple, no JVD CARDIOVASCULAR EXAMINATION:. S1, S2, regular RESPIRATORY EXAMINATION:, Clear to A&P ABDOMINAL EXAMINATION:. Benign EXTREMITIES:. No clubbing, cyanosis, edema SKIN:, Normal NEUROLOGICAL EXAMINATION:. No sensory motor deficit PSYCHIATRIC EXAMINATION:. Normal LABORATORY DATA: Please see below. IMAGING: [None] PROGNOSIS: [Good] ACTIVITY: [As tolerated]. DIET: [As tolerated] DISCHARGE PLAN: [Follow-up with PCP in one week] DISPOSITION: 01 Home, Self-Care. DISCHARGE INSTRUCTIONS: 1. [Follow-up with PCP]. ITEMS TO FOLLOWUP ON ON OUTPATIENT: 1. [Follow-up with PCP in one week]. DISCHARGE CONDITION: [Stable]. TIME SPENT ON DISCHARGE: Greater than [35] minutes. Vital Signs/I&Os Vital Signs Date Time Temp Pulse Resp B/P (MAP) Pulse Ox O2 Delivery O2 Flow Rate FiO2 11/03/18 08:00 67 117/61 11/03/18 06:00 97.5 16 96 11/01/18 20:45 Room Air I&O- Last 24 Hours up to 6 AM 11/03/18 06:00 Intake Total 1110 ml Output Total 650 ml Balance 460 ml Laboratory Data Labs 24H Laboratory Tests 2 11/02/18 12:52: Bedside Glucose (Misc Panel) 138H 11/02/18 16:45: Bedside Glucose (Misc Panel) 147H 11/02/18 19:51: Bedside Glucose (Misc Panel) 154H 11/03/18 04:40: Nucleated Red Blood Cells % (auto) 0.0, Anion Gap 9, Glomerular Filtration Rate > 60.0, Blood Urea Nitrogen 10, Creatinine 0.78, Sodium Level 142, Potassium Level 4.0, Chloride Level 109H, Carbon Dioxide Level 24, Calcium Level 8.2L, Aspartate Amino Transf (AST/SGOT) 14, Alanine Aminotransferase (ALT/SGPT) 18, Alkaline Phosphatase 64, Total Bilirubin 0.3, Total Protein 6.7, Albumin 3.0L, Albumin/Globulin Ratio 0.81L CBC/BMP Laboratory Tests 11/03/18 04:40 Red Blood Count 3.51 L, Mean Corpuscular Volume 94.9, Mean Corpuscular Hemoglobin 29.9, Mean Corpuscular Hemoglobin Concent 31.5 L, Red Cell Distribution Width 13.3, Calcium Level 8.2 L, Aspartate Amino Transf (AST/SGOT) 14, Alanine Aminotransferase (ALT/SGPT) 18, Alkaline Phosphatase 64, Total Bilirubin 0.3, Total Protein 6.7, Albumin 3.0 L FSBS Laboratory Tests Test 11/02/18 12:52 11/02/18 16:45 11/02/18 19:51 Range/Units Bedside Glucose (Misc Panel) 138 147 154 83-110 MG/DL Microbiology Microbiology 11/01/18 Blood Culture - Preliminary, Resulted No growth after 24 hours . All specim... 11/01/18 Blood Culture - Preliminary, Resulted No growth after 24 hours . All specim... 11/01/18 Urine Culture - Final, Complete Escherichia Coli Discharge Medications Scheduled Amlodipine Besylate (Amlodipine Besylate) 5 Mg Tab, 5 MG PO DAILY, (Reported) Azelastine HCl (Azelastine HCl) 0.1% [place].pump, 2 SPRAY NARES BID, (Reported) Buspirone HCl (Buspirone HCl) 5 Mg Tab, 5 MG PO DAILY, (Reported) Carvedilol (Carvedilol) 6.25 Mg Tab, 6.25 MG PO BID, (Reported) Cephalexin (Keflex) 500 Mg Capsule, 500 MG PO BID Ferrous Sulfate (Ferrous Sulfate) 325 Mg Tab, 325 MG PO DAILY, (Reported) Gabapentin (Gabapentin) 300 Mg Cap, 300 MG PO DAILY, (Reported) Gabapentin (Gabapentin) 600 Mg Tab, 600 MG PO QPM, (Reported) Losartan Potassium (Losartan Potassium) 50 Mg Tab, 50 MG PO DAILY, (Reported) Omeprazole (Omeprazole) 40 Mg Cap, 40 MG PO DAILY, (Reported) Pravastatin Sodium (Pravastatin Sodium) 80 Mg Tab, 80 MG PO QPM, (Reported) Ranitidine HCl (Ranitidine HCl) 300 Mg Capsule, 1 CAP PO DAILY, (Reported) Sitagliptin Phosphate (Januvia) 100 Mg Tablet, 100 MG PO DAILY, (Reported) Scheduled PRN Calcium Carbonate (Tums) 500 Mg Chw, 500 MG PO DAILY PRN for HEARTBURN, (Reported) Dicyclomine HCl (Dicyclomine HCl) 10 Mg Capsule, 20 MG PO Q6H PRN for CONSTIPATION, (Reported) Allergies Coded Allergies: No Known Allergies (Unverified , 11/01/18) TERRA BATRES MD November 03, 2018 12:55
== END 2018-11-03 10:29 | disposition home or self-care (01) ==
LOC: M ED 15:47 → M ED INP 19:41 → M MSPAV 21:15
PROVIDERS: ADMIT Internal Medicine; ATTEND Internal Medicine
DX: G93.41 Metabolic encephalopathy (principal); N39.0 Urinary tract infection, site not specified; I10 Essential (primary) hypertension; E11.9 Type 2 diabetes mellitus without complications; R07.89 Other chest pain; E78.5 Hyperlipidemia, unspecified; E88.81 Metabolic syndrome and other insulin resistance; E55.9 Vitamin D deficiency, unspecified; N32.81 Overactive bladder; Z79.899 Other long term (current) drug therapy
CPT/HCPCS: 36415; 70450; 71045; 74177; 80053; 80076; 81001; 82140; 82550; 82553; 83605; 83690; 84443; 84484; 85025; 85027; 87040; 87088; 87186; 87502; 93005; 93041; 94760; 96361; 96372; 96374; 96375; 96376; 97161; 97165; 99285; G0378; J0696; J2405; Q9967

== ENCOUNTER → 2018-11-10 | Outpatient (REF) | payer MEDICARE, MEDICAID ==
[~2018-11-10] MED LIST changes: +AZEL1SPR3 NARES; +DICY10CA13 PO; +JANU100T PO; +KEFL500C17 PO; +PHARMACY COMMENT; +RANI300C PO
== END ==
LOC: M LAB REF 15:52
PROVIDERS: ATTEND Physician Assistant
DX: N39.0 Urinary tract infection, site not specified (principal)

== ENCOUNTER → 2018-12-07 | Outpatient (CLI) | payer MEDICARE, MEDICAID ==
[2018-12-07 10:35] LABS: BASO # 0.1 10^3/uL (0.0-0.2); BASO % 1.3 % (0.0-1.0); EOS # 0.6 10^3/uL (0.0-0.50); EOS % 10.9 % (0.0-3.0); HEMATOCRIT 37.1 % (36.0-47.0); HEMOGLOBIN 11.7 g/dl (12.0-15.5); LYMPH # 1.2 10^3/uL (1.5-4.5); LYMPH % 21.5 % (24.0-44.0); MEAN CORPUSCULAR HEMOGLOBIN 30.7 pg (27.0-33.0); MEAN CORPUSCULAR HGB CONC 31.5 g/dl (32.0-36.5); MEAN CORPUSCULAR VOLUME 97.4 fl (80.0-96.0); MONO # 0.4 10^3/uL (0.0-0.8); MONO % 7.6 % (0.0-5.0); NEUTROPHILS # 3.2 10^3/uL (1.8-7.7); NEUTROPHILS % 58.3 % (36.0-66.0); PLATELET COUNT, AUTOMATED 168 10^3/uL (150-450); RED BLOOD COUNT 3.81 10^6/uL (4.00-5.40); WHITE BLOOD COUNT 5.4 10^3/uL (4.0-10.0)
[2018-12-07 11:03] LABS: ALBUMIN 3.7 GM/DL (3.2-5.2); ALT/SGPT 21 U/L (12-78); BILIRUBIN,TOTAL 0.4 MG/DL (0.2-1.0); BLOOD UREA NITROGEN 13 MG/DL (7-18); CALCIUM LEVEL 8.9 MG/DL (8.8-10.2); CARBON DIOXIDE LEVEL 29 MEQ/L (21-32); CHLORIDE LEVEL 109 MEQ/L (98-107); CREATININE FOR GFR 0.88 MG/DL (0.55-1.30); FERRITIN 67 NG/ML (8-252); GLOMERULAR FILTRATION RATE > 60.0 (>32); GLUCOSE, FASTING 117 MG/DL (70-100); POTASSIUM SERUM 4.2 MEQ/L (3.5-5.1); SODIUM LEVEL 146 MEQ/L (136-145)
== END ==
LOC: M SMT 08:54
PROVIDERS: ATTEND Family Medicine
DX: E11.65 Type 2 diabetes mellitus with hyperglycemia (principal); D50.9 Iron deficiency anemia, unspecified

== ENCOUNTER → 2019-03-01 | Outpatient (CLI) | payer MEDICARE, MEDICAID ==
[2019-03-01 10:26] LABS: BASO % 0.6 % (0.0-1.0); EOS # 0.1 10^3/uL (0.0-0.5); EOS % 2.8 % (0.0-3.0); HEMATOCRIT 39.9 % (36.0-47.0); HEMOGLOBIN 12.9 g/dl (12.0-15.5); LYMPH # 1.4 10^3/uL (1.5-5.0); LYMPH % 27.2 % (24.0-44.0); MEAN CORPUSCULAR HEMOGLOBIN 31.3 pg (27.0-33.0); MEAN CORPUSCULAR HGB CONC 32.3 g/dl (32.0-36.5); MEAN CORPUSCULAR VOLUME 96.8 fl (80.0-96.0); MONO # 0.4 10^3/uL (0.0-0.8); MONO % 7.1 % (0.0-5.0); NEUTROPHILS # 3.2 10^3/uL (1.5-8.5); NEUTROPHILS % 62.1 % (36.0-66.0); PLATELET COUNT, AUTOMATED 149 10^3/uL (150-450); RED BLOOD COUNT 4.12 10^6/uL (4.00-5.40); WHITE BLOOD COUNT 5.1 10^3/uL (4.0-10.0)
[2019-03-01 10:45] LABS: HEMOGLOBIN A1c 6.6 %
[2019-03-01 10:53] LABS: ALBUMIN 3.8 GM/DL (3.2-5.2); ALT/SGPT 19 U/L (12-78); BILIRUBIN,TOTAL 0.5 MG/DL (0.2-1.0); BLOOD UREA NITROGEN 14 MG/DL (7-18); CARBON DIOXIDE LEVEL 29 MEQ/L (21-32); CHLORIDE LEVEL 110 MEQ/L (98-107); CREATININE FOR GFR 0.89 MG/DL (0.55-1.30); GLOMERULAR FILTRATION RATE > 60.0 (>32); GLUCOSE, FASTING 117 MG/DL (70-100); POTASSIUM SERUM 3.9 MEQ/L (3.5-5.1); SODIUM LEVEL 144 MEQ/L (136-145); TOTAL PROTEIN 7.2 GM/DL (6.4-8.2)
== END ==
LOC: M SMT 08:46
PROVIDERS: ATTEND Family Medicine
DX: E11.65 Type 2 diabetes mellitus with hyperglycemia (principal); D50.9 Iron deficiency anemia, unspecified

== ENCOUNTER → 2019-06-04 | Outpatient (REF) | payer MEDICARE, MEDICAID ==
[~2019-06-04] MED LIST changes: -OMEP40CA2 PO; +OMEP40CA97 PO
[2019-06-04 12:17] LABS: BASO % 0.4 % (0.0-1.0); EOS # 0.1 10^3/uL (0.0-0.5); EOS % 2.2 % (0.0-3.0); HEMATOCRIT 40.9 % (36.0-47.0); HEMOGLOBIN 12.8 g/dl (12.0-15.5); LYMPH # 0.9 10^3/uL (1.5-5.0); LYMPH % 15.9 % (24.0-44.0); MEAN CORPUSCULAR HEMOGLOBIN 30.9 pg (27.0-33.0); MEAN CORPUSCULAR HGB CONC 31.3 g/dl (32.0-36.5); MEAN CORPUSCULAR VOLUME 98.8 fl (80.0-96.0); MONO # 0.4 10^3/uL (0.0-0.8); MONO % 7.6 % (0.0-5.0); NEUTROPHILS % 72.8 % (36.0-66.0); PLATELET COUNT, AUTOMATED 137 10^3/uL (150-450); RED BLOOD COUNT 4.14 10^6/uL (4.00-5.40); WHITE BLOOD COUNT 5.5 10^3/uL (4.0-10.0)
[2019-06-04 12:36] LABS: ALBUMIN 3.9 GM/DL (3.2-5.2); ALT/SGPT 25 U/L (12-78); BILIRUBIN,TOTAL 0.5 MG/DL (0.2-1.0); BLOOD UREA NITROGEN 15 MG/DL (7-18); CARBON DIOXIDE LEVEL 26 MEQ/L (21-32); CHLORIDE LEVEL 110 MEQ/L (98-107); CHOLESTEROL LEVEL 207 MG/DL (<200); CHOLESTEROL RISK RATIO 3.833 (<5); CREATININE FOR GFR 0.94 MG/DL (0.55-1.30); GLOMERULAR FILTRATION RATE > 60.0 (>32); GLUCOSE, FASTING 127 MG/DL (70-100); HDL CHOLESTEROL 54 MG/DL (>40); LDL CHOLESTEROL 126 MG/DL (<100); NON-HDL-C 153 MG/DL; SODIUM LEVEL 143 MEQ/L (136-145); TOTAL PROTEIN 7.1 GM/DL (6.4-8.2); TRIGLYCERIDES LEVEL 136 MG/DL (<150)
[2019-06-04 12:42] LABS: HEMOGLOBIN A1c 6.6 %
== END ==
LOC: M LABDRAW1 12:03
PROVIDERS: ATTEND Family Medicine
DX: E11.65 Type 2 diabetes mellitus with hyperglycemia (principal); D50.9 Iron deficiency anemia, unspecified; E78.2 Mixed hyperlipidemia

== ENCOUNTER → 2019-09-03 | Outpatient (CLI) | payer MEDICARE, MEDICAID ==
[2019-09-03 11:40] LABS: BASO % 0.4 % (0.0-1.0); EOS # 0.1 10^3/uL (0.0-0.5); EOS % 1.8 % (0.0-3.0); HEMATOCRIT 39.4 % (36.0-47.0); HEMOGLOBIN 12.6 g/dl (12.0-15.5); LYMPH % 12.9 % (24.0-44.0); MEAN CORPUSCULAR HEMOGLOBIN 30.8 pg (27.0-33.0); MEAN CORPUSCULAR VOLUME 96.3 fl (80.0-96.0); MONO # 0.5 10^3/uL (0.0-0.8); MONO % 6.3 % (0.0-5.0); NEUTROPHILS # 6.2 10^3/uL (1.5-8.5); NEUTROPHILS % 78.2 % (36.0-66.0); PLATELET COUNT, AUTOMATED 161 10^3/uL (150-450); RED BLOOD COUNT 4.09 10^6/uL (4.00-5.40); WHITE BLOOD COUNT 7.9 10^3/uL (4.0-10.0)
[2019-09-03 12:09] LABS: ALT/SGPT 20 U/L (12-78); BILIRUBIN,TOTAL 0.4 MG/DL (0.2-1.0); BLOOD UREA NITROGEN 12 MG/DL (7-18); CALCIUM LEVEL 8.9 MG/DL (8.8-10.2); CARBON DIOXIDE LEVEL 31 MEQ/L (21-32); CHLORIDE LEVEL 108 MEQ/L (98-107); CREATININE FOR GFR 0.89 MG/DL (0.55-1.30); GLOMERULAR FILTRATION RATE > 60.0 (>32); GLUCOSE, FASTING 137 MG/DL (70-100); POTASSIUM SERUM 4.3 MEQ/L (3.5-5.1); SODIUM LEVEL 144 MEQ/L (136-145); TOTAL PROTEIN 7.3 GM/DL (6.4-8.2)
[2019-09-03 12:30] LABS: CREATININE, URINE 66.2 MG/DL; MALB URINE SIEMENS 23.8 MG/L; MAU/CREAT RATIO 35.9 MCG/MG (0.0-30.0)
[2019-09-03 14:41] LABS: HEMOGLOBIN A1c 6.7 %
== END ==
LOC: M PLALAB 09:09
PROVIDERS: ATTEND Family Medicine
DX: E11.9 Type 2 diabetes mellitus without complications (principal)

== ENCOUNTER → 2019-09-06 | Outpatient (REF) | payer MEDICARE, MEDICAID ==
[~2019-09-06] MED LIST changes: +AZEL1SPR3; -AZEL1SPR3 NARES; +DICL1GEL3 TOP; +LEVO250T12 PO
== END ==
LOC: M LAB REF 17:22
PROVIDERS: ATTEND Family Medicine
DX: R41.82 Altered mental status, unspecified (principal)

== ENCOUNTER 2019-09-10 21:53 | Inpatient (IN) | payer MEDICARE, MEDICAID ==
[~2019-09-10] VITALS: Ht 162.6 cm; Wt 64.8 kg
[~2019-09-10 21:53] MED LIST changes: -DICL1GEL3 TOP; -LEVO250T12 PO
[2019-09-10] MEDS ORDERED: NS 1,000 ML IV ONE (22:30)
[2019-09-10] MEDS: ACETAMINOPHEN 325 MG TAB PO ONE ×2 (22:54→23:22)
[2019-09-10] MEDS ORDERED: LIDOCAINE 2% 5ML JELLY UROJET TOP ONE (23:15)
[2019-09-11 00:02] LABS: ACETAMINOPHEN LEVEL 7.9 UG/ML (10.0-30.0); ALBUMIN 2.8 GM/DL (3.2-5.2); ALT/SGPT 47 U/L (12-78); BILIRUBIN,DIRECT 0.2 MG/DL (0.0-0.2); BILIRUBIN,TOTAL 0.5 MG/DL (0.2-1.0); BLOOD UREA NITROGEN 22 MG/DL (7-18); CALCIUM LEVEL 7.7 MG/DL (8.8-10.2); CARBON DIOXIDE LEVEL 23 MEQ/L (21-32); CHLORIDE LEVEL 104 MEQ/L (98-107); CK-MB VALUE MASS < 1.0 NG/ML (<3.6); CPK CREATINE PHOSPHOKINASE 43 U/L (26-192); CREATININE FOR GFR 1.65 MG/DL (0.55-1.30); ETHYL ALCOHOL (ETHANOL) < 0.003 % (0.000-0.010); GLOMERULAR FILTRATION RATE 31.8 (>32); GLUCOSE, FASTING 152 MG/DL (70-100); MB/CK RELATIVE INDEX 2.33 (< OR =4); POTASSIUM SERUM 3.7 MEQ/L (3.5-5.1); SALICYLATE LEVEL 8.2 MG/DL (5.0-30.0); SODIUM LEVEL 138 MEQ/L (136-145); TOTAL PROTEIN 6.3 GM/DL (6.4-8.2); TROPONIN I < 0.02 NG/ML (< 0.10)
[2019-09-11 00:10] LABS: BASO % 0.1 % (0.0-1.0); EOS # 0.4 10^3/uL (0.0-0.5); EOS % 3.8 % (0.0-3.0); HEMATOCRIT 35.1 % (36.0-47.0); HEMOGLOBIN 11.5 g/dl (12.0-15.5); LYMPH # 0.4 10^3/uL (1.5-5.0); LYMPH % 3.4 % (24.0-44.0); MEAN CORPUSCULAR HEMOGLOBIN 30.7 pg (27.0-33.0); MEAN CORPUSCULAR HGB CONC 32.8 g/dl (32.0-36.5); MEAN CORPUSCULAR VOLUME 93.9 fl (80.0-96.0); MONO # 0.7 10^3/uL (0.0-0.8); NEUTROPHILS # 9.2 10^3/uL (1.5-8.5); NEUTROPHILS % 85.6 % (36.0-66.0); PLATELET COUNT, AUTOMATED 119 10^3/uL (150-450); RED BLOOD COUNT 3.74 10^6/uL (4.00-5.40); WHITE BLOOD COUNT 10.8 10^3/uL (4.0-10.0)
[2019-09-11 00:31] LABS: AMPHETAMINES LEVEL URINE NEGATIVE (NEGATIVE); BARBITURATES URINE NEGATIVE (NEGATIVE); BENZODIAZEPINES URINE NEGATIVE (NEGATIVE); CANNABINOIDS URINE NEGATIVE (NEGATIVE); COCAINE METABOLITE URINE NEGATIVE (NEGATIVE); METHADONE URINE NEGATIVE (NEGATIVE); OPIATES URINE NEGATIVE (NEGATIVE); PHENCYCLIDINE URINE NEGATIVE (NEGATIVE)
--- NOTE | 2019-09-11 01:26 | HPEPDOC ---
[facility] Medical History & Physical Date of Admission Sep 11, 2019 Date of Service: Sep 11, 2019 Primary Care Physician: ALON ALVAREZ DO Attending Physician: DAREN ALCANTAR MD History and Physical CHIEF COMPLAINT: Fever, altered mental status, UTI HISTORY OF PRESENT ILLNESS: Patient is an 78-year-old who presents to the emergency department with chief complaint of altered mental status, fever in the setting of a previously diagnosed UTI. She was seen by her primary care provider on 09/06/2019 and diagnosed with a UTI. Patient was started on Macrobid at that time. Per patient and her daughter, her symptoms persisted throughout the weekend at which time she experienced bouts of nausea and vomiting and fever without chills.. Earlier this week, patient began to demonstrate some signs of intermittent confusion and forgetfulness. Patient's daughter contacted PCP earlier today who transitioned the patient from Macrobid to Levaquin. Patient did receive 1 dose. Just prior to presentation, patient was found wandering her house and acting confused. She had a fever of 103F and took an Excedrin. Given this constellation of symptoms in the setting of her UTI, patient presented to the emergency department for further evaluation and management. In the emergency department, she was given 2 fluid boluses. REVIEW OF SYSTEMS: CONSTITUTIONAL: Reports a 3-4 day history of intermittent fevers and chills, increased fatigue and lethargy, decreased appetite of the same time frame. No changes in weight HEENT: Intermittent headaches, changes in vision, no changes in hearing, no nasal congestion or rhinorrhea, no sore throat and difficulty swallowing CARDIOVASCULAR: No chest pain, palpitations or an appropriate tachycardia RESPIRATORY: Denies any shortness of breath, cough or wheeze. No reported history of orthopnea GASTROINTESTINAL: 3-4 day history of nausea and emesis. No hematemesis. No abdominal pain or discomfort. No diarrhea or constipation. Hematochezia or me chan GENITOURINARY: Denies any current dysuria or increased frequency urgency or hesitancy. Does report a history of overactive bladder SKIN: No new or changing skin lesions MUSCULOSKELETAL: Denies any muscle/joint aches or pains. NEUROLOGICAL: Daughter reports a 3 day history of increasing confusion and forgetfulness. No history of syncope or seizures. No focal neurologic deficits. No altered speech per family. No numbness or tingling. HEMATOLOGIC/LYMPHATIC: Denies any abnormal bruising or bleeding. PAST MEDICAL / SURGICAL HISTORY: Type 2 diabetes mellitus Hypercholesterolemia Hypertension Vitamin D deficiency Overactive bladder Degenerative disc disease of lumbar spine History of left-sided breast cancer, s/p mastectomy Diverticulosis Generalized anxiety GERD Bladder repair, 1967 Left-sided mastectomy, 1975 Left-sided breast reconstruction, 1978 Colonoscopy with hyperplastic polyp, 2001 and 2005 Coronary cath, normal, 2008. Stress SPECT, low risk, 2009 EGD for gastric ulcer, benign biopsy, 2013 SOCIAL HISTORY: Marital status: Single, partner of greater than 30+ years Resides in: Apartment with partner, son lives in unit above Children: Son and daughter Employment: Retired Tobacco use: Nonsmoker ETOH: No recent alcohol use Drugs: No illicit substance use Travel: No recent travel history Other: Patient does wear dentures and glasses FAMILY HISTORY: Father: Cancer of unknown etiology Mother: CHF, CAD, CVA Siblings: Brother, CHF, diabetes, hypertension, CAD ALLERGIES: No known drug allergies HOME MEDICATIONS: Please see below. PHYSICAL EXAMINATION: VITAL SIGNS: Temperature 97.9, pulse 75, respiratory rate 18, blood pressure 102/51, pulse oximetry 95 % on room air. GENERAL APPEARANCE: Patient is interviewed and examined the emergency department. She was found to be resting comfortably in bed with her daughter at bedside. She did not appear in any acute distress. She was awake, alert and oriented, and able to answer questions regarding her medical history.. HEENT: Normocephalic, atraumatic, pupils equal and reactive to light, EOMI, no posterior auricular erythema tonsillar swelling or exudates. Patient does utilize dentures. No JVD or cervical lymphadenopathy. CARDIOVASCULAR: Regular rate and rhythm without murmur LUNGS: Clear to auscultation bilaterally ABDOMEN: Soft, nontender, nondistended, no masses or organomegaly. Bowel sounds throughout. MUSCULOSKELETAL: Moves all extremities equally. Strength 5 out of 5 in both upper and lower extremities. : Mild suprapubic tenderness, No CVA tenderness EXTREMITIES: No lower extremity edema, calf tenderness bilaterally NEUROLOGICAL: Alert and oriented 3, no focal neurologic deficits LABORATORY DATA: See below. IMAGING: Chest x-ray (09/11/2019): Pending official radiologic read, no infiltrates or c onsolidations MICROBIOLOGY: Urine culture (09/11/2019): Pending ASSESSMENT: Patient is an 79-year-old female past medical history significant for type 2 diabetes [id number], hypertension, anxiety, GERD, dyslipidemia, hypertension, overactive bladder, who presented to ED after unsuccessful treatment of diagnosed UTI as an outpatient 5 days prior. Patient was treated with a 5 day course of Macrobid and then transitioned to by mouth Levaquin when she continued to have fevers in the setting of confusion and forgetfulness. Upon laboratory evaluation in the ED, patient was found to have an improving an UA though and acute kidney injury. Patient will be admitted to the hospital for f urther management of her complicated UTI and correction of her DONNIE with IV hydration. PLAN: #UTI, complicated Patient is s/p 5 days of Macrobid and a single dose of Levaquin. Macrobid can be found on the beers list, and carries a side effect of drowsiness in the elderly, which may have contributed to patient's altered mentation and energy level. Patient will be started on 1 gm ceftriaxone, adjustment per culture. Tylenol as needed for fever #Altered mental status, multifactorial May be related to dehydration, Macrobid or infection Continue with neuro checks Will obtain ammonia level #DONNIE, Suspect prerenal dehydration IVF at 60ml/hr Renal ultrasound and trend BMP Hold losartan #IV fluid hydration Continue to follow electrolytes #AST elevation AST of 40, Macrobid has been known to be hepatotoxic Ammonia level pending #Diabetes mellitus type 2, non-insulin dependent Fasting glucose of 152, A1c of 6.7 Will hold home Januvia Sliding scale, before meals/at bedtime #Chronic Hypertension Will continue on home carvedilol / hold losartan bc of DONNIE #Generalized anxiety Continue with home BuSpar #GERD Continue with home omeprazole Tums when necessary #Dyslipidemia Continue with home statin DVT PROPHYLAXIS: Heparin subcutaneous DISPOSITION: Pending clinical improvement, suspect 2 night stays Laboratory Data Labs 24H Laboratory Tests 2 09/10/19 22:50: Lactic Acid Level 1.2 09/10/19 23:21: Immature Granulocyte % (Auto) 1.1, Neutrophils (%) (Auto) 85.6H, Lymphocytes (%) (Auto) 3.4L, Monocytes (%) (Auto) 6.0H, Eosinophils (%) (Auto) 3.8H, Basophils (%) (Auto) 0.1, Neutrophils # (Auto) 9.2H, Lymphocytes # (Auto) 0.4L, Monocytes # (Auto) 0.7, Eosinophils # (Auto) 0.4, Basophils # (Auto) 0.0, Nucleated Red Blood Cells % (auto) 0.0, Anion Gap 11, Glomerular Filtration Rate 31.8L, Calcium Level 7.7L, Total Bilirubin 0.5, Direct Bilirubin 0.2, Aspartate Amino Transf (AST/SGOT) 40H, Alanine Aminotransferase (ALT/SGPT) 47, Alkaline Phosphatase 68, Total Creatine Kinase 43, Creatine Kinase MB < 1.0, Creatine Kinase MB Relative Index 2.33, Troponin I < 0.02, Total Protein 6.3L, Albumin 2.8L, Albumin/Globulin Ratio 0.80L, Salicylates Level 8.2, Acetaminophen Level 7.9L, Ethyl Alcohol Level < 0.003 09/11/19 00:03: Urine Color YELLOW, Urine Appearance HAZY, Urine pH 5.0, Urine Specific [place] 1.010, Urine Protein NEGATIVE, Urine Glucose (UA) NEGATIVE, Urine Ketones NEGATIVE, Urine Blood NEGATIVE, Urine Nitrite NEGATIVE, Urine Bilirubin NEGATIVE, Urine Urobilinogen 0.2, Urine Leukocyte Esterase 1+H, Urine WBC (Auto) 24H, Urine RBC (Auto) 5H, Urine Hyaline Casts (Auto) 0, Urine Bacteria (Auto) 1+H, Urine Squamous Epithelial Cells 0, Urine Transitional Epithelial Cells 1, Urine Mucus (Auto) SMALL, Urine Sperm (Auto) , Urine Opiates Screen NEGATIVE, Urine Methadone Screen NEGATIVE, Urine Barbiturates Screen NEGATIVE, Urine Phencyclidine Screen NEGATIVE, Urine Amphetamines Screen NEGATIVE, Urine Benzodiazepines Screen NEGATIVE, Urine Cocaine Metabolite Screen NEGATIVE, Urine Cannabinoids Screen NEGATIVE CBC/BMP Laboratory Tests 09/10/19 23:21 Microbiology Microbiology 09/11/19 Urine Culture, Received Pending Home Medications Scheduled Buspirone HCl (Buspirone HCl) 5 Mg Tab, 5 MG PO DAILY Carvedilol (Carvedilol) 6.25 Mg Tab, 6.25 MG PO BID Ferrous Sulfate (Ferrous Sulfate) 325 Mg Tab, 325 MG PO DAILY Gabapentin (Gabapentin) 300 Mg Cap, 300 MG PO DAILY Gabapentin (Gabapentin) 300 Mg Capsule, 600 MG PO QHS Levofloxacin (Levofloxacin) 250 Mg Tablet, 250 MG PO DAILY Losartan Potassium (Losartan Potassium) 50 Mg Tab, 50 MG PO DAILY Omeprazole (Omeprazole) 40 Mg Cap, 40 MG PO DAILY Pravastatin Sodium (Pravastatin Sodium) 80 Mg Tab, 80 MG PO QHS Sitagliptin Phosphate (Januvia) 100 Mg Tablet, 100 MG PO DAILY Scheduled PRN Azelastine HCl (Azelastine HCl) 0.1% Lorenzo.pump, 2 SPRAY NA BID PRN for NASAL CONGESTION Calcium Carbonate (Tums) 500 Mg Chw, 1,500 MG PO Q6H PRN for HEARTBURN Diclofenac Sodium (Diclofenac Sodium) 1% 100GM Gel..gram., 3 GM TOP BID PRN for PAIN APPLIES TO BOTH HANDS AND WRISTS Dicyclomine HCl (Dicyclomine HCl) 10 Mg Capsule, 20 MG PO Q6H PRN for CRAMPS Allergies Coded Allergies: No Known Allergies (Unverified , 11/01/18) A-FIB/CHADSVASC A-FIB History Current/History of A-Fib/PAF?: No GME ATTESTATION GME ATTESTATION My faculty preceptor for this patient encounter was physically present during the encounter and was fully available. All aspects of the patient interview, examination, medical decision making process, and medical care plan development were reviewed and approved by the faculty preceptor. The faculty preceptor is aware and concurs with the plan as stated in the body of this note and will attest to such by his/her cosignature. ATTENDING NOTE TIME OF SERVICE 155AM is an 79 yr old w a PMH of NIDDM2 A1C 6.7%, HTN, and overactive bladder who will be admitted for management of AMS, UTI & DONNIE. AMS possibly 2/2 infection - neurochecks UTI - f/u cx & ceftriaxone DONNIE likely prerenal - IVF / f/u lytes and Renal US Rest per 's H&P AWILDA LOREDO DO Sep 11, 2019 01:26 DAREN ALCANTAR MD Sep 11, 2019 01:33
[2019-09-11] MEDS ORDERED: ACETAMINOPHEN TAB 650MG DOSE (2X325MG) PO PRN (01:30)
[2019-09-11] MEDS ORDERED: GLUCOSE 4 GM CHEW TABLET PO PRN (01:30)
[2019-09-11] MEDS ORDERED: NS 1,000 ML IV ONE (01:30)
[2019-09-11] MEDS ORDERED: GLUCAGON FOR INJ 1 MG VIAL (J1610) SC PRN (01:30)
[2019-09-11] MEDS ORDERED: MOM 30ML SUSPENSION UDC PO PRN (01:30)
[2019-09-11] MEDS ORDERED: DEXTROSE 50% 50 ML SYRINGE IV PRN (01:30)
[2019-09-11] MEDS ORDERED: cefTRIAXone SOD 1 GM in D5W MINI-BAG PLUS 50 ML IV ONE (01:45)
[2019-09-11] MEDS ORDERED: GABA-843 PO (01:50)
[2019-09-11] MEDS ORDERED: DICL1GEL3 TOP (01:50)
[2019-09-11] MEDS ORDERED: LEVO250T12 PO (01:50)
[2019-09-11 02:04] LABS: MAGNESIUM LEVEL 2.1 MG/DL (1.8-2.4)
[2019-09-11 02:21] LABS: BASO % 0.1 % (0.0-1.0); EOS # 0.4 10^3/uL (0.0-0.5); EOS % 4.7 % (0.0-3.0); HEMATOCRIT 33.4 % (36.0-47.0); LYMPH # 0.4 10^3/uL (1.5-5.0); LYMPH % 4.2 % (24.0-44.0); MEAN CORPUSCULAR HEMOGLOBIN 30.6 pg (27.0-33.0); MEAN CORPUSCULAR HGB CONC 32.9 g/dl (32.0-36.5); MONO # 0.5 10^3/uL (0.0-0.8); MONO % 5.9 % (0.0-5.0); NEUTROPHILS # 7.3 10^3/uL (1.5-8.5); NEUTROPHILS % 84.8 % (36.0-66.0); PLATELET COUNT, AUTOMATED 117 10^3/uL (150-450); RED BLOOD COUNT 3.59 10^6/uL (4.00-5.40); WHITE BLOOD COUNT 8.6 10^3/uL (4.0-10.0)
[2019-09-11 02:21] LABS: CREATININE,RANDOM URINE 86.3 MG/DL; POTASSIUM RANDOM URINE 25.9 MEQ/L
[2019-09-11 02:49] LABS: CALCIUM LEVEL 7.9 MG/DL (8.8-10.2); CREATININE FOR GFR 1.47 MG/DL (0.55-1.30); GLOMERULAR FILTRATION RATE 36.3 (>32); POTASSIUM SERUM 3.3 MEQ/L (3.5-5.1)
[2019-09-11] MEDS ORDERED: AZELASTINE 137MCG NASAL SPY 30 ML (ASTELIN) PRN (03:00)
[2019-09-11] MEDS ORDERED: CALCIUM CARBONATE 500 MG CHEW U/D PO PRN (03:00)
--- NOTE | 2019-09-11 03:23 | REPVR ---
PROCEDURE INFORMATION: Exam: US Retroperitoneal Limited, Kidneys Exam date and time: 09/11/19 (2:43am) Age: 79 years old Clinical indication: DONNIE TECHNIQUE: Imaging protocol: Real-time ultrasound of the retroperitoneum with image documentation. Examination was focused on the kidneys. COMPARISON: CT ABDOMEN PELVIS of 11/01/18 FINDINGS: RIGHT KIDNEY --- The right kidney measures 11.6 cm in length. No hydronephrosis nor mass is noted. No upper tract stones are identified. Right lower renal pole cyst (2.7 x 2.8 x 2.8 cm size) (2.8 cm avg. diameter). LEFT KIDNEY --- The left kidney measures 11.4 cm in length. No hydronephrosis nor mass is noted. No upper tract stones are identified. URINARY BLADDER --- No significant pathology. No stones nor mass. Bilateral ureteral jets are visualized. IMPRESSION: No acute pathology. Each kidney is normal in size. No hydronephrosis. Right lower renal pole cyst (2.8 cm size). Ureteral jets are visualized, bilaterally. Electronically signed by: Dominga Coronel On 09/11/2019 03:22:47 AM
[2019-09-11 03:45] VITALS: BP 150/79
[2019-09-11] MEDS: NS 1,000 ML IV SCH ×2 (04:02→18:21)
[2019-09-11] MEDS ORDERED: POTASSIUM CHLORIDE 10 MEQ SR TABLET PO ONE ×2 (04:15→08:00)
[2019-09-11 04:23] LABS: MAGNESIUM LEVEL 2.1 MG/DL (1.8-2.4)
[2019-09-11] MEDS ORDERED: GABAPENTIN 300 MG CAP PO ONE (04:45)
[2019-09-11] MEDS: HEPARIN SOD (PORCINE) 5000 UNITS/ML VIAL (J1644 PER 1000UNITS) SC SCH ×3 (06:08→21:28)
--- NOTE | 2019-09-11 07:01 | REP ---
Clinical: Fever . Comparison: 11/01/2018 . Technique: PA and lateral. Findings: The mediastinum and cardiac silhouette are normal. The lung gee are clear and without acute consolidation, effusion, or pneumothorax. Evidence of prior left breast surgery with rim calcified implant unchanged. The skeletal structures are intact and normal. Impression: 1. No acute cardiopulmonary process. 2. No focal consolidation or effusion. Electronically Signed by Dontae Waite MD 09/11/2019 06:53 A
[2019-09-11] MEDS ORDERED: LIDOCAINE VISCOUS 2% SOLN 15ML UDC SSP PRN (08:15)
[2019-09-11] MEDS ORDERED: GABAPENTIN 300 MG CAP PO SCH ×2 (09:00→21:00)
[2019-09-11] MEDS ORDERED: LOSARTAN 50 MG TAB PO SCH (09:00)
[2019-09-11] MEDS ORDERED: LIDOCAINE VISCOUS 2% SOLN 15ML UDC SSP ONE (09:00)
[2019-09-11] MEDS: CARVedilol 6.25 MG TAB PO SCH ×2 (10:02→21:27)
[2019-09-11] MEDS: cefTRIAXone SOD 1 GM in D5W MINI-BAG PLUS 50 ML IV SCH (10:03)
[2019-09-11] MEDS: OMEPRAZOLE 20 MG CAP PO SCH (10:03)
[2019-09-11] MEDS: busPIRone 5 MG TAB PO SCH (10:03)
[2019-09-11] MEDS: HumaLOG INSULIN (NovoLOG) PER UNIT SC SCH ×3 (10:06→18:21)
--- NOTE | 2019-09-11 11:49 | IPN ---
DATE: 09/11/2019 The patient said it is August, [facility] [place] 2019. Chief complaint is a little dysuria. Says her balance has been off. Also complains of throat pain, difficulty swallowing because of pain. Feels like she has ulcers in her mouth. Afebrile overnight. no dysphagia. no rhinorrhea, muscle aches. Temperature 97.1, pulse 80, respiratory rate 18, blood pressure 150/79, 97% on room air. Generally, patient is awake, alert, oriented to person. Answers questions appropriately. Face is symmetric, tongue is midline. Patient has no tonsillar exudate. Some erythema in the pharynx. Lungs are clear to auscultation. No wheezing or rales. Heart: S1, S2. Sinus. Abdomen is soft, nontender, nondistended. No costovertebral angle (CVA) tenderness. Lower extremity has no edema. LABORATORY DATA: CBC metabolic panel have been reviewed, notable for creatinine of 1.47 and potassium 3.3. ASSESSMENT: This is an 79-year-old female who lives at home, presented with confusion, found to have a urinary tract infection (UTI) and acute kidney injury with history of type 2 diabetes, hypertension, overactive bladder, diverticulosis, vitamin D deficiency, degenerative disc disease, left breast cancer status post mastectomy, general anxiety and reflux. IMPRESSION: 1. Urinary tract infection status post Macrobid and Levaquin as an outpatient, currently on IV ceftriaxone awaiting urine culture and sensitivity. Patient has had no fever. White counts are normal. May be discharged home when sensitivity results are available. 2. Acute encephalopathy secondary to UTI and dehydration with acute kidney injury. Patient currently is on IV fluids with improved renal function. 3. Acute kidney injury: On IV fluids at 3 mL/h. Awaiting renal ultrasound results. Avoid nephrotoxins. Renally dose all medications. Currently on intravenous fluids. 4. Type 2 diabetes: A1c is 6.7 currently on sliding scale. Hold Januvia. Consistent carbohydrate diet and renal diet. 5. Hypertension: On Coreg, holding losartan due to renal failure. 6. Reflux disease: On Prilosec. 7. Dyslipidemia: On statin. 8. sore throat. check respiratory panel, strep screen,mrsa screen, throat c&s, coronavirus covid 19. respiratory precautions until negative screen. cepacol lozenges, \viscous lidocaine prn. DISPOSITION. Await physical therapy (PT) clearance and urine culture sensitivities 1-2 days. MTDD
[2019-09-11 15:00] VITALS: BP 123/53
[2019-09-11] MEDS ORDERED: HumaLOG INSULIN (NovoLOG) PER UNIT SC SCH (21:00)
[2019-09-11] MEDS ORDERED: PRAVASTATIN 20 MG TAB PO SCH (21:00)
[2019-09-11 21:27] VITALS: BP 145/90
[2019-09-11 22:00] VITALS: BP 147/90
[2019-09-12 05:17] VITALS: BP 123/70
[2019-09-12] MEDS: HEPARIN SOD (PORCINE) 5000 UNITS/ML VIAL (J1644 PER 1000UNITS) SC SCH (06:25)
[2019-09-12] MEDS: HumaLOG INSULIN (NovoLOG) PER UNIT SC SCH ×2 (07:30→13:43)
[2019-09-12 08:41] LABS: BASO % 0.2 % (0.0-1.0); EOS # 0.5 10^3/uL (0.0-0.5); EOS % 9.4 % (0.0-3.0); HEMATOCRIT 35.4 % (36.0-47.0); HEMOGLOBIN 11.2 g/dl (12.0-15.5); LYMPH # 0.8 10^3/uL (1.5-5.0); LYMPH % 15.2 % (24.0-44.0); MEAN CORPUSCULAR HEMOGLOBIN 30.3 pg (27.0-33.0); MEAN CORPUSCULAR HGB CONC 31.6 g/dl (32.0-36.5); MEAN CORPUSCULAR VOLUME 95.7 fl (80.0-96.0); MONO # 0.5 10^3/uL (0.0-0.8); MONO % 9.4 % (0.0-5.0); NEUTROPHILS # 3.5 10^3/uL (1.5-8.5); NEUTROPHILS % 65.4 % (36.0-66.0); PLATELET COUNT, AUTOMATED 123 10^3/uL (150-450); WHITE BLOOD COUNT 5.3 10^3/uL (4.0-10.0)
[2019-09-12] MEDS: NS 1,000 ML IV SCH (08:58)
[2019-09-12] MEDS: cefTRIAXone SOD 1 GM in D5W MINI-BAG PLUS 50 ML IV SCH (08:58)
[2019-09-12] MEDS: CARVedilol 6.25 MG TAB PO SCH (08:59)
[2019-09-12] MEDS: OMEPRAZOLE 20 MG CAP PO SCH (08:59)
[2019-09-12] MEDS: busPIRone 5 MG TAB PO SCH (08:59)
[2019-09-12 09:00] LABS: CREATININE FOR GFR 1.06 MG/DL (0.55-1.30); POTASSIUM SERUM 3.8 MEQ/L (3.5-5.1)
--- NOTE | 2019-09-12 11:46 | DS.PDOC ---
Discharge Summary General Date of Admission Sep 11, 2019 at 01:23 Date of Discharge September 12, 2019 Discharge Summary DISCHARGE DIAGNOSES: ACUTE KIDNEY INJURY URINARY TRACT INFECTION ACUTE METABOLIC ENCEPHALOPATHY PHARYNGITIS history of type 2 diabetes, hypertension, overactive bladder, diverticulosis, vitamin D deficiency, degenerative disc disease, left breast cancer status post mastectomy, general anxiety reflux. DISCHARGE MEDICATIONS: PLS SEE BELOW DISCHARGE INSTRUCTIONS: Department of Health to be contacted by [facility] RN prior to hospital discharge for outpatient monitoring until COVID-19 result is finalized. Pt is to follow self-isolation until negative COVID-19. [facility] RN in charge to call the patient and departement of health once COVID-19 result is available. HOSPITAL COURSE: This is an 79-year-old female who lives at home, presented with confusion, found to have a urinary tract infection (UTI) and acute kidney injury with history of type 2 diabetes, hypertension, overactive bladder, diverticulosis, vitamin D deficiency, degenerative disc disease, left breast cancer status post mastectomy, general anxiety and reflux. Urinary tract infection status post Macrobid and Levaquin as an outpatient, started on iv ceftriaxone on 09/01/19, but negative urine culture. Patient has had no fever. White count is normal. no further antibiotics needed at hospital discharge. Acute encephalopathy secondary to UTI and dehydration with acute kidney injury. s/p IV fluids , and now back to baseline creatinine which is normal. Acute kidney injury: s/p ivfluids, renally dosed all medications during her hospital stay, and losartan held temporarily. she now has normal creatinine. Type 2 diabetes: A1c is 6.7 currently on sliding scale. Held Januvia due to acute kidney injury. She was kept on Consistent carbohydrate diet and renal diet. Hypertension: On Coreg, held losartan due to renal failure, which may now be resumed at hospital discharge Reflux disease: On Prilosec. Dyslipidemia: On statin. sore throat. negative respiratory panel,negative strep screen, negative mrsa screen, coronavirus covid 19 pending result. respiratory precautions until negative screen. cepacol lozenges, viscous lidocaine prn. pt to be reported to the health department for outpatient monitoring and self-isolation until result is finalized. may dc home withself-quarantine. DISCHARGE PHYSICAL EXAMINATION: VITALS: PLS SEE BELOW Generally, patient is awake, alert, oriented to person. Answers questions appropriately. Face is symmetric, tongue is midline. Patient has no tonsillar exudate. Some erythema in the pharynx. Lungs are clear to auscultation. No wheezing or rales. Heart: S1, S2. Sinus. Abdomen is soft, nontender, nondistended. No costovertebral angle (CVA) tenderness. Lower extremity has no edema. DISCHARGE LABORATORY DATA, IMAGING STUDIES, MICROBIOLOGY: PLS SEE BELOW. PROCEDURE INFORMATION: Exam: US Retroperitoneal Limited, Kidneys Exam date and time: 09/11/19 (2:43am) Age: 79 years old Clinical indication: DONNIE TECHNIQUE: Imaging protocol: Real-time ultrasound of the retroperitoneum with image documentation. Examination was focused on the kidneys. COMPARISON: CT ABDOMEN PELVIS of 11/01/18 FINDINGS: RIGHT KIDNEY --- The right kidney measures 11.6 cm in length. No hydronephrosis nor mass is noted. No upper tract stones are identified. Right lower renal pole cyst (2.7 x 2.8 x 2.8 cm size) (2.8 cm avg. diameter). LEFT KIDNEY --- The left kidney measures 11.4 cm in length. No hydronephrosis nor mass is noted. No upper tract stones are identified. URINARY BLADDER --- No significant pathology. No stones nor mass. Bilateral ureteral jets are visualized. IMPRESSION: No acute pathology. Each kidney is normal in size. No hydronephrosis. Right lower renal pole cyst (2.8 cm size). Ureteral jets are visualized, bilaterally. Electronically signed by: Dominga Coronel On 09/11/2019 03:22:47 AM DD: DOMINGA CORONEL MD 09/11/19 0252 DT: ERENDIRA 09/11/19 0322 DS: FRANCESCO 09/11/19 0322 Clinical: Fever . Comparison: 11/01/2018 . Technique: PA and lateral. Findings: The mediastinum and cardiac silhouette are normal. The lung gee are clear and without acute consolidation, effusion, or pneumothorax. Evidence of prior left breast surgery with rim calcified implant unchanged. The skeletal structures are intact and normal. Impression: 1. No acute cardiopulmonary process. 2. No focal consolidation or effusion. Electronically Signed by Dontae Waite MD 09/11/2019 06:53 A DD: Dontae Waite MD 09/11/19 0652 DT: Leatha 09/11/19 0653 DS: KWAMA 09/11/19 0653 09/11/19 0653 Vital Signs/I&Os Vital Signs Date Time Temp Pulse Resp B/P (MAP) Pulse Ox O2 Delivery O2 Flow Rate FiO2 09/12/19 05:17 98.3 78 15 123/70 (87) 96 Room Air I&O- Last 24 Hours up to 6 AM 09/12/19 06:00 Intake Total 1800 ml Output Total 1325 ml Balance 475 ml Laboratory Data Labs 24H Laboratory Tests 2 09/11/19 12:38: Bedside Glucose (Misc Panel) 150H 09/11/19 12:44: Methicillin-Resist S.aureus DNA PCR NOT DETECTED 09/11/19 18:05: Bedside Glucose (Misc Panel) 136H 09/11/19 21:06: Bedside Glucose (Misc Panel) 148H 09/12/19 06:26: Bedside Glucose (Misc Panel) 105 09/12/19 08:22: Immature Granulocyte % (Auto) 0.4, Neutrophils (%) (Auto) 65.4, Lymphocytes (%) (Auto) 15.2L, Monocytes (%) (Auto) 9.4H, Eosinophils (%) (Auto) 9.4H, Basophils (%) (Auto) 0.2, Neutrophils # (Auto) 3.5, Lymphocytes # (Auto) 0.8L, Monocytes # (Auto) 0.5, Eosinophils # (Auto) 0.5, Basophils # (Auto) 0.0, Nucleated Red Blood Cells % (auto) 0.0, Anion Gap 3L, Glomerular Filtration Rate 53.0, Calcium Level 8.0L CBC/BMP Laboratory Tests 09/12/19 08:22 FSBS Laboratory Tests Test 09/11/19 12:38 09/11/19 18:05 09/11/19 21:06 09/12/19 06:26 Range/Units Bedside Glucose (Misc Panel) 150 136 148 105 83-110 MG/DL Microbiology Microbiology 09/11/19 Respiratory Virus Panel (PCR) (MAC) - Final, Complete 09/11/19 Group A Streptococcus Screen (MAC) - Final, Complete 09/11/19 Eye/Ear/Nose/Throat Culture - Final, Complete 09/11/19 Coronavirus COVID-19 PCR (MAC), Received Pending 09/11/19 Blood Culture - Preliminary, Resulted No growth after 24 hours . All specim... 09/11/19 Urine Culture - Final, Complete Discharge Medications Scheduled Buspirone HCl (Buspirone HCl) 5 Mg Tab, 5 MG PO DAILY, (Reported) Carvedilol (Carvedilol) 6.25 Mg Tab, 6.25 MG PO BID, (Reported) Ferrous Sulfate (Ferrous Sulfate) 325 Mg Tab, 325 MG PO DAILY, (Reported) Gabapentin (Gabapentin) 300 Mg Cap, 300 MG PO DAILY, (Reported) Gabapentin (Gabapentin) 300 Mg Capsule, 600 MG PO QHS, (Reported) Levofloxacin (Levofloxacin) 250 Mg Tablet, 250 MG PO DAILY, (Reported) Losartan Potassium (Losartan Potassium) 50 Mg Tab, 50 MG PO DAILY, (Reported) Omeprazole (Omeprazole) 40 Mg Cap, 40 MG PO DAILY, (Reported) Pravastatin Sodium (Pravastatin Sodium) 80 Mg Tab, 80 MG PO QHS, (Reported) Sitagliptin Phosphate (Januvia) 100 Mg Tablet, 100 MG PO DAILY, (Reported) Scheduled PRN Azelastine HCl (Azelastine HCl) 0.1% [place].pump, 2 SPRAY NA BID PRN for NASAL CONGESTION, (Reported) Calcium Carbonate (Tums) 500 Mg Chw, 1,500 MG PO Q6H PRN for HEARTBURN, (Repo rted) Diclofenac Sodium (Diclofenac Sodium) 1% 100GM Gel..gram., 3 GM TOP BID PRN for PAIN, (Reported) APPLIES TO BOTH HANDS AND WRISTS Dicyclomine HCl (Dicyclomine HCl) 10 Mg Capsule, 20 MG PO Q6H PRN for CRAMPS, (Reported) Allergies Coded Allergies: No Known Allergies (Unverified , 11/01/18) DIANELYS REAGAN MD Sep 12, 2019 11:42
== END 2019-09-12 14:15 | disposition home or self-care (01) | DRG 682 ==
LOC: M ED 21:53 → M ED INP 09-11 01:23 → ENRESERV 09-11 03:15 → M MSPAV 09-11 03:45
PROVIDERS: ADMIT Internal Medicine; ATTEND General Practice
DX: N17.9 Acute kidney failure, unspecified (principal); G93.41 Metabolic encephalopathy; N39.0 Urinary tract infection, site not specified; R41.82 Altered mental status, unspecified; R50.9 Fever, unspecified; R11.2 Nausea with vomiting, unspecified; E11.9 Type 2 diabetes mellitus without complications; E78.00 Pure hypercholesterolemia, unspecified; I10 Essential (primary) hypertension; E55.9 Vitamin D deficiency, unspecified; N32.81 Overactive bladder; M51.36 Other intervertebral disc degeneration, lumbar region; Z85.3 Personal history of malignant neoplasm of breast; Z90.12 Acquired absence of left breast and nipple; F41.1 Generalized anxiety disorder; K21.9 Gastro-esophageal reflux disease without esophagitis; E86.0 Dehydration; E78.5 Hyperlipidemia, unspecified; Z79.899 Other long term (current) drug therapy; J02.9 Acute pharyngitis, unspecified; T37.8X5A Adverse effect of other specified systemic anti-infectives and antiparasitics, initial encounter

== ENCOUNTER → 2019-09-26 | Outpatient (REF) | payer MEDICARE, MEDICAID ==
[~2019-09-26] MED LIST changes: +DICL1GEL3 TOP; +LEVO250T12 PO
== END ==
LOC: M LAB REF 16:50
PROVIDERS: ATTEND Physician Assistant
DX: N39.0 Urinary tract infection, site not specified (principal)

== ENCOUNTER → 2019-09-26 | Outpatient (CLI) | payer MEDICARE, MEDICAID ==
[2019-09-26 13:21] LABS: BASO # 0.1 10^3/uL (0.0-0.2); EOS # 0.2 10^3/uL (0.0-0.5); EOS % 3.2 % (0.0-3.0); HEMATOCRIT 36.8 % (36.0-47.0); HEMOGLOBIN 11.6 g/dl (12.0-15.5); LYMPH # 1.1 10^3/uL (1.5-5.0); LYMPH % 19.6 % (24.0-44.0); MEAN CORPUSCULAR HEMOGLOBIN 29.9 pg (27.0-33.0); MEAN CORPUSCULAR HGB CONC 31.5 g/dl (32.0-36.5); MEAN CORPUSCULAR VOLUME 94.8 fl (80.0-96.0); MONO # 0.5 10^3/uL (0.0-0.8); MONO % 8.4 % (0.0-5.0); NEUTROPHILS # 3.7 10^3/uL (1.5-8.5); NEUTROPHILS % 66.4 % (36.0-66.0); PLATELET COUNT, AUTOMATED 184 10^3/uL (150-450); RED BLOOD COUNT 3.88 10^6/uL (4.00-5.40); WHITE BLOOD COUNT 5.6 10^3/uL (4.0-10.0)
[2019-09-26 13:43] LABS: ALBUMIN 3.6 GM/DL (3.2-5.2); ALT/SGPT 16 U/L (12-78); BILIRUBIN,TOTAL 0.7 MG/DL (0.2-1.0); BLOOD UREA NITROGEN 14 MG/DL (7-18); C REACTIVE PROTEIN QUANTITATIV < 0.30 MG/DL (0.00-0.30); CALCIUM LEVEL 8.9 MG/DL (8.8-10.2); CARBON DIOXIDE LEVEL 28 MEQ/L (21-32); CHLORIDE LEVEL 108 MEQ/L (98-107); CREATININE FOR GFR 1.02 MG/DL (0.55-1.30); GLOMERULAR FILTRATION RATE 55.4 (>32); GLUCOSE, FASTING 120 MG/DL (70-100); POTASSIUM SERUM 4.4 MEQ/L (3.5-5.1); SODIUM LEVEL 141 MEQ/L (136-145); TOTAL PROTEIN 7.7 GM/DL (6.4-8.2)
== END ==
LOC: M PLALAB 11:45
PROVIDERS: ATTEND Physician Assistant
DX: N39.0 Urinary tract infection, site not specified (principal)

== ENCOUNTER → 2019-10-30 | Outpatient (REF) | payer MEDICARE, MEDICAID | LOC: M LAB REF 18:07 | PROVIDERS: ATTEND Physician Assistant | DX: N39.0 Urinary tract infection, site not specified (principal) ==

== ENCOUNTER → 2019-12-07 | Outpatient (CLI) | payer MEDICARE, MEDICAID ==
[2019-12-07 11:14] LABS: BASO % 0.5 % (0.0-1.0); EOS # 0.1 10^3/uL (0.0-0.5); EOS % 2.7 % (0.0-3.0); HEMATOCRIT 39.3 % (36.0-47.0); HEMOGLOBIN 12.5 g/dl (12.0-15.5); LYMPH # 1.3 10^3/uL (1.5-5.0); LYMPH % 29.8 % (24.0-44.0); MEAN CORPUSCULAR HEMOGLOBIN 30.6 pg (27.0-33.0); MEAN CORPUSCULAR HGB CONC 31.8 g/dl (32.0-36.5); MEAN CORPUSCULAR VOLUME 96.1 fl (80.0-96.0); MONO # 0.3 10^3/uL (0.0-0.8); MONO % 7.7 % (0.0-5.0); NEUTROPHILS # 2.6 10^3/uL (1.5-8.5); NEUTROPHILS % 59.1 % (36.0-66.0); PLATELET COUNT, AUTOMATED 146 10^3/uL (150-450); RED BLOOD COUNT 4.09 10^6/uL (4.00-5.40); WHITE BLOOD COUNT 4.4 10^3/uL (4.0-10.0)
[2019-12-07 11:24] LABS: ALBUMIN 3.6 GM/DL (3.2-5.2); ALT/SGPT 19 U/L (12-78); BILIRUBIN,TOTAL 0.5 MG/DL (0.2-1.0); BLOOD UREA NITROGEN 10 MG/DL (7-18); CALCIUM LEVEL 8.9 MG/DL (8.8-10.2); CARBON DIOXIDE LEVEL 31 MEQ/L (21-32); CHLORIDE LEVEL 110 MEQ/L (98-107); CREATININE FOR GFR 0.88 MG/DL (0.55-1.30); GLOMERULAR FILTRATION RATE > 60.0 (>32); GLUCOSE, FASTING 130 MG/DL (70-100); IRON (FE) 76 UG/DL (50-170); PERCENT SATURATION 29.9 % (13.2-45.0); POTASSIUM SERUM 4.4 MEQ/L (3.5-5.1); SODIUM LEVEL 145 MEQ/L (136-145); TOTAL IRON BINDING CAPACITY 254 UG/DL (250-450); TOTAL PROTEIN 7.1 GM/DL (6.4-8.2)
[2019-12-07 11:46] LABS: HEMOGLOBIN A1c 6.4 %
== END ==
LOC: M PLALAB 08:57
PROVIDERS: ATTEND Family Medicine
DX: E11.9 Type 2 diabetes mellitus without complications (principal); E78.2 Mixed hyperlipidemia; D50.9 Iron deficiency anemia, unspecified

== ENCOUNTER → 2019-12-21 | Outpatient (CLI) | payer MEDICARE, MEDICAID ==
--- NOTE | 2019-12-22 07:40 | REP ---
UNILATERAL MAMMOGRAM RIGHT BREAST WITH 3D TOMOSYNTHESIS: History of left breast cancer and mastectomy 1978. MLO and CC views of the right breast are performed with 3D tomosynthesis. Comparison is made with multiple prior exams most recently 06/15/2018. Moderate fibroglandular density is unchanged. There is no new mass or architectural distortion. No clustered microcalcifications are seen. IMPRESSION: BIRADS 2: BI-RADS/ACR category 2 mammogram. Benign Findings. ACR 2 benign mammogram right breast. Patient is status post left mastectomy. Suggest followup mammogram in 1 year. This mammogram was interpreted with the aid of an FDA-approved computer-aided detection system. A. Negative x-ray reports should not delay biopsy if a dominant or clinically suspicious mass is present. B. Four to eight percent of cancers are not identified by x-ray. C. Adenosis and dense breasts may obscure an underlying neoplasm. The patient states that she or he has not had a clinical breast exam in over a year. The patient letter being requested is M1. [place] breast density C.?
== END ==
LOC: M WHC 14:10
PROVIDERS: ATTEND Family Medicine
DX: Z12.31 Encounter for screening mammogram for malignant neoplasm of breast (principal); Z85.3 Personal history of malignant neoplasm of breast; Z90.12 Acquired absence of left breast and nipple

== ENCOUNTER → 2020-03-11 | Outpatient (CLI) | payer MEDICARE, MEDICAID ==
[~2020-03-11] MED LIST changes: +AMLO1TAB24 PO; -AMLO5TAB6 PO
[2020-03-11 13:23] LABS: ALBUMIN 3.9 GM/DL (3.2-5.2); ALT/SGPT 18 U/L (12-78); BILIRUBIN,TOTAL 0.6 MG/DL (0.2-1.0); BLOOD UREA NITROGEN 11 MG/DL (7-18); CARBON DIOXIDE LEVEL 31 MEQ/L (21-32); CHLORIDE LEVEL 108 MEQ/L (98-107); CHOLESTEROL LEVEL 204 MG/DL (<200); CHOLESTEROL RISK RATIO 3.457 (<5); FERRITIN 122 NG/ML (8-252); GLOMERULAR FILTRATION RATE > 60.0 (>32); GLUCOSE, FASTING 107 MG/DL (70-100); HDL CHOLESTEROL 59 MG/DL (>40); IRON (FE) 65 UG/DL (50-170); LDL CHOLESTEROL 124 MG/DL (<100); NON-HDL-C 145 MG/DL; PERCENT SATURATION 23.6 % (13.2-45.0); POTASSIUM SERUM 4.2 MEQ/L (3.5-5.1); SODIUM LEVEL 144 MEQ/L (136-145); TOTAL IRON BINDING CAPACITY 276 UG/DL (250-450); TOTAL PROTEIN 7.5 GM/DL (6.4-8.2); TRIGLYCERIDES LEVEL 104 MG/DL (<150)
[2020-03-11 13:31] LABS: BASO % 0.4 % (0.0-1.0); EOS # 0.1 10^3/uL (0.0-0.5); EOS % 2.2 % (0.0-3.0); HEMATOCRIT 40.7 % (36.0-47.0); LYMPH # 1.1 10^3/uL (1.5-5.0); LYMPH % 19.5 % (24.0-44.0); MEAN CORPUSCULAR HEMOGLOBIN 31.9 pg (27.0-33.0); MEAN CORPUSCULAR HGB CONC 31.9 g/dl (32.0-36.5); MONO # 0.5 10^3/uL (0.0-0.8); MONO % 8.5 % (0.0-5.0); NEUTROPHILS # 3.8 10^3/uL (1.5-8.5); PLATELET COUNT, AUTOMATED 157 10^3/uL (150-450); RED BLOOD COUNT 4.07 10^6/uL (4.00-5.40); WHITE BLOOD COUNT 5.5 10^3/uL (4.0-10.0)
== END ==
LOC: M PLALAB 09:03
PROVIDERS: ATTEND Family Medicine
DX: E11.9 Type 2 diabetes mellitus without complications (principal); I10 Essential (primary) hypertension; D50.9 Iron deficiency anemia, unspecified; E78.2 Mixed hyperlipidemia

== ENCOUNTER → 2020-06-17 | Outpatient (CLI) | payer MEDICARE, MEDICAID ==
[2020-06-17 11:54] LABS: BASO % 0.6 % (0.0-1.0); EOS # 0.1 10^3/uL (0.0-0.5); EOS % 1.7 % (0.0-3.0); HEMATOCRIT 39.6 % (36.0-47.0); HEMOGLOBIN 12.3 g/dl (12.0-15.5); LYMPH # 1.1 10^3/uL (1.5-5.0); MEAN CORPUSCULAR HEMOGLOBIN 30.2 pg (27.0-33.0); MEAN CORPUSCULAR HGB CONC 31.1 g/dl (32.0-36.5); MEAN CORPUSCULAR VOLUME 97.3 fl (80.0-96.0); MONO # 0.3 10^3/uL (0.0-0.8); MONO % 6.9 % (0.0-5.0); NEUTROPHILS # 3.1 10^3/uL (1.5-8.5); NEUTROPHILS % 67.6 % (36.0-66.0); PLATELET COUNT, AUTOMATED 159 10^3/uL (150-450); RED BLOOD COUNT 4.07 10^6/uL (4.00-5.40); WHITE BLOOD COUNT 4.7 10^3/uL (4.0-10.0)
[2020-06-17 12:24] LABS: ALBUMIN 3.8 GM/DL (3.2-5.2); ALT/SGPT 19 U/L (12-78); BILIRUBIN,TOTAL 0.6 MG/DL (0.2-1.0); BLOOD UREA NITROGEN 12 MG/DL (7-18); CALCIUM LEVEL 9.4 MG/DL (8.8-10.2); CARBON DIOXIDE LEVEL 32 MEQ/L (21-32); CHLORIDE LEVEL 110 MEQ/L (98-107); CHOLESTEROL LEVEL 189 MG/DL (<200); CHOLESTEROL RISK RATIO 3.048 (<5); CREATININE FOR GFR 0.86 MG/DL (0.55-1.30); GLOMERULAR FILTRATION RATE > 60.0 (>32); GLUCOSE, FASTING 126 MG/DL (70-100); HDL CHOLESTEROL 62 MG/DL (>40); LDL CHOLESTEROL 108 MG/DL (<100); NON-HDL-C 127 MG/DL; POTASSIUM SERUM 4.4 MEQ/L (3.5-5.1); SODIUM LEVEL 144 MEQ/L (136-145); TOTAL PROTEIN 7.3 GM/DL (6.4-8.2); TRIGLYCERIDES LEVEL 97 MG/DL (<150)
[2020-06-17 13:12] LABS: HEMOGLOBIN A1c 5.9 %
== END ==
LOC: M PLALAB 09:27
PROVIDERS: ATTEND Family Medicine
DX: E78.2 Mixed hyperlipidemia (principal); E11.9 Type 2 diabetes mellitus without complications; D50.9 Iron deficiency anemia, unspecified

== ENCOUNTER → 2020-10-14 | Outpatient (CLI) | payer MEDICARE, MEDICAID ==
[~2020-10-14] MED LIST changes: +GABA-282 PO; -GABA-843 PO
[2020-10-14 15:00] LABS: BASO % 0.8 % (0.0-1.0); EOS # 0.1 10^3/uL (0.0-0.5); HEMATOCRIT 40.4 % (36.0-47.0); HEMOGLOBIN 12.7 g/dl (12.0-15.5); LYMPH # 1.1 10^3/uL (1.5-5.0); LYMPH % 21.2 % (24.0-44.0); MEAN CORPUSCULAR HEMOGLOBIN 31.1 pg (27.0-33.0); MEAN CORPUSCULAR HGB CONC 31.4 g/dl (32.0-36.5); MONO # 0.4 10^3/uL (0.0-0.8); NEUTROPHILS # 3.4 10^3/uL (1.5-8.5); NEUTROPHILS % 67.6 % (36.0-66.0); PLATELET COUNT, AUTOMATED 167 10^3/uL (150-450); RED BLOOD COUNT 4.08 10^6/uL (4.00-5.40)
[2020-10-14 15:21] LABS: BLOOD UREA NITROGEN 13 MG/DL (7-18); CALCIUM LEVEL 9.1 MG/DL (8.8-10.2); CARBON DIOXIDE LEVEL 29 MEQ/L (21-32); CHLORIDE LEVEL 110 MEQ/L (98-107); CREATININE FOR GFR 0.85 MG/DL (0.55-1.30); GLOMERULAR FILTRATION RATE > 60.0 (>32); GLUCOSE, FASTING 130 MG/DL (70-100); POTASSIUM SERUM 4.6 MEQ/L (3.5-5.1); SODIUM LEVEL 144 MEQ/L (136-145)
[2020-10-14 15:41] LABS: CREATININE, URINE 49.4 MG/DL; MALB URINE SIEMENS 7.6 MG/L; MAU/CREAT RATIO 15.3 MCG/MG (0.0-30.0)
[2020-10-14 16:41] LABS: HEMOGLOBIN A1c 5.7 %
== END ==
LOC: M PLALAB 08:52
PROVIDERS: ATTEND Physician Assistant
DX: D50.9 Iron deficiency anemia, unspecified (principal); E11.9 Type 2 diabetes mellitus without complications

== ENCOUNTER → 2020-12-15 | Outpatient (REF) | payer MEDICARE, MEDICAID ==
[~2020-12-15] MED LIST changes: +OMEP40CA4 PO; -OMEP40CA97 PO
[2020-12-15 13:56] LABS: HEMOGLOBIN A1c 6.2 %
[2020-12-15 14:01] LABS: ALBUMIN 3.9 GM/DL (3.2-5.2); ALT/SGPT 21 U/L (12-78); BILIRUBIN,TOTAL 0.6 MG/DL (0.2-1.0); BLOOD UREA NITROGEN 11 MG/DL (7-18); CALCIUM LEVEL 9.3 MG/DL (8.8-10.2); CARBON DIOXIDE LEVEL 29 MEQ/L (21-32); CHLORIDE LEVEL 108 MEQ/L (98-107); FERRITIN 118 NG/ML (8-252); GLOMERULAR FILTRATION RATE > 60.0 (>32); GLUCOSE, FASTING 110 MG/DL (70-100); POTASSIUM SERUM 4.7 MEQ/L (3.5-5.1); SODIUM LEVEL 141 MEQ/L (136-145); TOTAL PROTEIN 7.6 GM/DL (6.4-8.2)
[2020-12-15 14:16] LABS: BASO % 0.5 % (0.0-1.0); EOS # 0.1 10^3/uL (0.0-0.5); EOS % 1.4 % (0.0-3.0); HEMATOCRIT 39.5 % (36.0-47.0); HEMOGLOBIN 12.5 g/dl (12.0-15.5); LYMPH # 1.1 10^3/uL (1.5-5.0); LYMPH % 17.1 % (24.0-44.0); MEAN CORPUSCULAR HEMOGLOBIN 30.6 pg (27.0-33.0); MEAN CORPUSCULAR HGB CONC 31.6 g/dl (32.0-36.5); MEAN CORPUSCULAR VOLUME 96.8 fl (80.0-96.0); MONO # 0.4 10^3/uL (0.0-0.8); MONO % 6.6 % (2.0-8.0); NEUTROPHILS # 4.8 10^3/uL (1.5-8.5); NEUTROPHILS % 74.1 % (36.0-66.0); PLATELET COUNT, AUTOMATED 177 10^3/uL (150-450); RED BLOOD COUNT 4.08 10^6/uL (4.00-5.40); WHITE BLOOD COUNT 6.5 10^3/uL (4.0-10.0)
== END ==
LOC: M PLALAB 12:59
PROVIDERS: ATTEND Family Medicine
DX: E11.65 Type 2 diabetes mellitus with hyperglycemia (principal); D50.9 Iron deficiency anemia, unspecified

== ENCOUNTER → 2021-02-19 | Outpatient (CLI) | payer MEDICARE, MEDICAID ==
[2021-02-19 11:08] LABS: BASO % 0.6 % (0.0-1.0); EOS # 0.1 10^3/uL (0.0-0.5); HEMATOCRIT 38.1 % (36.0-47.0); HEMOGLOBIN 12.1 g/dl (12.0-15.5); LYMPH % 20.6 % (24.0-44.0); MEAN CORPUSCULAR HEMOGLOBIN 31.1 pg (27.0-33.0); MEAN CORPUSCULAR HGB CONC 31.8 g/dl (32.0-36.5); MEAN CORPUSCULAR VOLUME 97.9 fl (80.0-96.0); MONO # 0.4 10^3/uL (0.0-0.8); MONO % 7.4 % (2.0-8.0); NEUTROPHILS # 3.4 10^3/uL (1.5-8.5); PLATELET COUNT, AUTOMATED 178 10^3/uL (150-450); RED BLOOD COUNT 3.89 10^6/uL (4.00-5.40)
[2021-02-19 11:36] LABS: ALBUMIN 3.4 GM/DL (3.2-5.2); ALT/SGPT 20 U/L (12-78); BILIRUBIN,TOTAL 0.5 MG/DL (0.2-1.0); BLOOD UREA NITROGEN 9 MG/DL (7-18); CALCIUM LEVEL 8.9 MG/DL (8.8-10.2); CARBON DIOXIDE LEVEL 31 MEQ/L (21-32); CHLORIDE LEVEL 112 MEQ/L (98-107); CHOLESTEROL LEVEL 197 MG/DL (<200); CHOLESTEROL RISK RATIO 3.078 (<5); CREATININE FOR GFR 0.74 MG/DL (0.55-1.30); FERRITIN 55 NG/ML (8-252); GLOMERULAR FILTRATION RATE > 60.0 (>32); GLUCOSE, FASTING 105 MG/DL (70-100); HDL CHOLESTEROL 64 MG/DL (>40); IRON (FE) 60 UG/DL (50-170); LDL CHOLESTEROL 118 MG/DL (<100); NON-HDL-C 133 MG/DL; PERCENT SATURATION 21.7 % (13.2-45.0); POTASSIUM SERUM 4.3 MEQ/L (3.5-5.1); SODIUM LEVEL 146 MEQ/L (136-145); TOTAL IRON BINDING CAPACITY 276 UG/DL (250-450); TRIGLYCERIDES LEVEL 74 MG/DL (<150)
[2021-02-19 15:45] LABS: HEMOGLOBIN A1c 6.1 %
== END ==
LOC: M PLALAB 08:41
PROVIDERS: ATTEND Family Medicine
DX: D50.9 Iron deficiency anemia, unspecified (principal); E11.9 Type 2 diabetes mellitus without complications; E78.2 Mixed hyperlipidemia

== ENCOUNTER → 2021-03-31 | Outpatient (CLI) | payer MEDICARE, MEDICAID ==
--- NOTE | 2021-03-31 13:45 | REPMRS ---
Patient History The patient states she had a clinical breast exam in September 2020. Family history of breast cancer at age 49 in daughter. Reconstruction of the left breast, 1978. Malignant mastectomy of the left breast, 1978. Digital Woman Screen Mammo: March 31, 2021 - Exam #: [id number] Bilateral CC and MLO view(s) were taken. Technologist: RT Malu Prior study comparison: December 21, 2019, bilateral digital woman screen mammo performed at [facility]. June 15, 2018, bilateral digital woman screen mammo performed at [facility]. June 09, 2017, digital woman screen mammo performed at [facility]. FINDINGS: The breast tissue is heterogeneously dense. This may lower the sensitivity of mammography. There has been no change in the appearance of the right breast parenchyma in the interval since the prior examination. No mass, architectural distortion, or microcalcific grouping has developed. No suspicious finding. 3-D tomosynthesis shows no additional findings. Assessment: BI-RADS/ACR category 2 mammogram. Benign Findings. Recommendation Routine screening mammogram of the right breast in 1 year. This mammogram was interpreted with the aid of an FDA-approved computer-aided dectection system. Electronically Signed By: Jared Garcia MD 03/31/21 [id number]
== END ==
LOC: M WHC 12:53
PROVIDERS: ATTEND Family Medicine
DX: Z12.31 Encounter for screening mammogram for malignant neoplasm of breast (principal); Z80.3 Family history of malignant neoplasm of breast; Z90.12 Acquired absence of left breast and nipple

== ENCOUNTER → 2021-05-06 | Outpatient (CLI) | payer MEDICARE, MEDICAID ==
[2021-05-06 13:40] LABS: BASO % 0.6 % (0.0-1.0); EOS # 0.1 10^3/uL (0.0-0.5); EOS % 2.4 % (0.0-3.0); HEMATOCRIT 38.7 % (36.0-47.0); HEMOGLOBIN 12.1 g/dl (12.0-15.5); LYMPH % 20.2 % (24.0-44.0); MEAN CORPUSCULAR HEMOGLOBIN 30.1 pg (27.0-33.0); MEAN CORPUSCULAR HGB CONC 31.3 g/dl (32.0-36.5); MEAN CORPUSCULAR VOLUME 96.3 fl (80.0-96.0); MONO # 0.4 10^3/uL (0.0-0.8); NEUTROPHILS # 3.5 10^3/uL (1.5-8.5); NEUTROPHILS % 69.6 % (36.0-66.0); PLATELET COUNT, AUTOMATED 192 10^3/uL (150-450); RED BLOOD COUNT 4.02 10^6/uL (4.00-5.40)
[2021-05-06 14:11] LABS: HEMOGLOBIN A1c 6.1 %
[2021-05-06 14:13] LABS: ALBUMIN 3.7 GM/DL (3.2-5.2); ALT/SGPT 24 U/L (12-78); BILIRUBIN,TOTAL 0.4 MG/DL (0.2-1.0); BLOOD UREA NITROGEN 9 MG/DL (7-18); CALCIUM LEVEL 9.4 MG/DL (8.8-10.2); CARBON DIOXIDE LEVEL 31 MEQ/L (21-32); CHLORIDE LEVEL 110 MEQ/L (98-107); CHOLESTEROL LEVEL 206 MG/DL (<200); CHOLESTEROL RISK RATIO 3.433 (<5); CREATININE FOR GFR 0.83 MG/DL (0.55-1.30); FREE T4 1.07 NG/DL (0.76-1.46); GLOMERULAR FILTRATION RATE > 60.0 (>32); GLUCOSE, FASTING 135 MG/DL (70-100); HDL CHOLESTEROL 60 MG/DL (>40); LDL CHOLESTEROL 126 MG/DL (<100); NON-HDL-C 146 MG/DL; POTASSIUM SERUM 4.5 MEQ/L (3.5-5.1); SODIUM LEVEL 143 MEQ/L (136-145); TOTAL PROTEIN 7.2 GM/DL (6.4-8.2); TRIGLYCERIDES LEVEL 102 MG/DL (<150)
== END ==
LOC: M PLALAB 09:29
PROVIDERS: ATTEND Family Medicine
DX: E11.9 Type 2 diabetes mellitus without complications (principal); D50.9 Iron deficiency anemia, unspecified; E78.2 Mixed hyperlipidemia

== ENCOUNTER → 2021-05-11 | Outpatient (REF) | payer MEDICARE, MEDICAID | LOC: M LAB REF 16:49 | PROVIDERS: ATTEND Family Medicine | DX: G31.84 Mild cognitive impairment of uncertain or unknown etiology (principal) ==

== ENCOUNTER → 2021-05-14 | Outpatient (CLI) | payer MEDICARE, MEDICAID ==
[2021-05-14 14:02] LABS: BASO % 0.6 % (0.0-1.0); EOS # 0.1 10^3/uL (0.0-0.5); EOS % 2.3 % (0.0-3.0); HEMATOCRIT 38.6 % (36.0-47.0); MEAN CORPUSCULAR HEMOGLOBIN 30.1 pg (27.0-33.0); MEAN CORPUSCULAR HGB CONC 31.1 g/dl (32.0-36.5); MEAN CORPUSCULAR VOLUME 96.7 fl (80.0-96.0); MONO # 0.4 10^3/uL (0.0-0.8); MONO % 7.3 % (2.0-8.0); NEUTROPHILS # 3.3 10^3/uL (1.5-8.5); NEUTROPHILS % 68.6 % (36.0-66.0); PLATELET COUNT, AUTOMATED 181 10^3/uL (150-450); RED BLOOD COUNT 3.99 10^6/uL (4.00-5.40); WHITE BLOOD COUNT 4.8 10^3/uL (4.0-10.0)
[2021-05-14 14:19] LABS: HEMOGLOBIN A1c 5.9 %
[2021-05-14 14:42] LABS: ALBUMIN 3.7 GM/DL (3.2-5.2); ALT/SGPT 24 U/L (12-78); BILIRUBIN,TOTAL 0.4 MG/DL (0.2-1.0); BLOOD UREA NITROGEN 9 MG/DL (7-18); CALCIUM LEVEL 9.2 MG/DL (8.8-10.2); CARBON DIOXIDE LEVEL 29 MEQ/L (21-32); CHLORIDE LEVEL 111 MEQ/L (98-107); CREATININE FOR GFR 0.86 MG/DL (0.55-1.30); GLOMERULAR FILTRATION RATE > 60.0 (>32); GLUCOSE, FASTING 127 MG/DL (70-100); POTASSIUM SERUM 4.6 MEQ/L (3.5-5.1); SODIUM LEVEL 145 MEQ/L (136-145); TOTAL PROTEIN 7.3 GM/DL (6.4-8.2)
== END ==
LOC: M PLALAB 08:42
PROVIDERS: ATTEND Family Medicine
DX: E11.9 Type 2 diabetes mellitus without complications (principal); D50.9 Iron deficiency anemia, unspecified

== ENCOUNTER → 2021-05-28 | Outpatient (CLI) | payer MEDICARE, MEDICAID ==
--- NOTE | 2021-05-28 15:10 | REP ---
INDICATION: DIAG UNI LEFT BREAST LUMP. COMPARISON: None TECHNIQUE: Real-time sonographic evaluation of left breast performed. FINDINGS: There is a history of left mastectomy with non autologous implant reconstruction in 1978. The reported palpable lump at the inframammary fold could not be included on mammographic imaging, therefore ultrasound of the lump is performed. At the site of the lump there is an oval echogenic area along the surface of the implant, measuring approximately 1.3 x 0.5 x 1.5 cm. It is parallel to the skin and is quite superficial. This is probably benign. It may represent focal implant disruption and silicone extrusion. There is could represent focal fibrosis. IMPRESSION: BIRADS/ACR category 3, probably benign. Mammogram is not performed as the palpable lump at the left inframammary fold could not be included on mammographic images. Ultrasound shows an oval echogenic area along the surface of the left breast implant measuring 1.3 x 0.5 x 1.5 cm. This is probably benign, this does not have a suspicious appearance. It may represent focal implant disruption and silicone extrusion. There is could represent focal fibrosis. RECOMMENDATION: Recommend either MRI of the breasts, or six-month follow-up ultrasound. <Electronically signed by Samuel Hurd > 05/28/21 [id number]
== END ==
LOC: M WHC 13:43
PROVIDERS: ATTEND Family Medicine
DX: N63.23 Unspecified lump in the left breast, lower outer quadrant (principal)

== ENCOUNTER → 2021-08-03 | Outpatient (CLI) | payer MEDICARE, MEDICAID ==
[~2021-08-03] MED LIST changes: -LEVO250T12 PO; +LEVO250T3 PO; +LOSA50TA28 PO; -LOSA50TA88 PO
[2021-08-03 17:45] LABS: BASO % 0.5 % (0.0-1.0); EOS # 0.1 10^3/uL (0.0-0.5); EOS % 1.2 % (0.0-3.0); HEMATOCRIT 36.8 % (36.0-47.0); HEMOGLOBIN 11.6 g/dl (12.0-15.5); LYMPH # 1.1 10^3/uL (1.5-5.0); LYMPH % 17.1 % (24.0-44.0); MEAN CORPUSCULAR HEMOGLOBIN 29.8 pg (27.0-33.0); MEAN CORPUSCULAR HGB CONC 31.5 g/dl (32.0-36.5); MEAN CORPUSCULAR VOLUME 94.6 fl (80.0-96.0); MONO # 0.5 10^3/uL (0.0-0.8); NEUTROPHILS # 4.9 10^3/uL (1.5-8.5); NEUTROPHILS % 73.9 % (36.0-66.0); PLATELET COUNT, AUTOMATED 170 10^3/uL (150-450); RED BLOOD COUNT 3.89 10^6/uL (4.00-5.40); WHITE BLOOD COUNT 6.6 10^3/uL (4.0-10.0)
[2021-08-03 18:26] LABS: ALBUMIN 3.7 GM/DL (3.2-5.2); ALT/SGPT 41 U/L (12-78); BILIRUBIN,TOTAL 0.2 MG/DL (0.2-1.0); BLOOD UREA NITROGEN 12 MG/DL (7-18); CALCIUM LEVEL 8.6 MG/DL (8.8-10.2); CARBON DIOXIDE LEVEL 28 MEQ/L (21-32); CHLORIDE LEVEL 107 MEQ/L (98-107); CREATININE FOR GFR 0.83 MG/DL (0.55-1.30); FOLATE 17.9 NG/ML; GLOMERULAR FILTRATION RATE > 60.0 (>32); GLUCOSE, FASTING 139 MG/DL (70-100); POTASSIUM SERUM 3.9 MEQ/L (3.5-5.1); RHEUMATOID FACTOR QUANT < 10.0 IU/ML (<15.0); SODIUM LEVEL 141 MEQ/L (136-145); TOTAL PROTEIN 7.2 GM/DL (6.4-8.2); VITAMIN B12 LEVEL > 2000 PG/ML
[2021-08-03 18:57] LABS: ERYTHROCYTE SEDIMENTATION RATE 26 mm/hr (0-30)
[2021-08-03 19:35] LABS: HEMOGLOBIN A1c 6.6 %
[2021-08-04 11:10] LABS: ALBUMIN 4.19 GM/DL (3.29-5.55); ALBUMIN % 58.2 % (55.8-66.1); ALPHA-1-GLOBULIN % 4.4 % (2.9-4.9); ALPHA-1-GLOBULINS 0.32 GM/DL (0.17-0.41); ALPHA-2-GLOBULINS 0.88 GM/DL (0.42-0.99); ALPHA-2-GLOBULINS % 12.2 % (7.1-11.8); BETA-1-GLOBULINS % 5.5 % (4.7-7.2); BETA-2-GLOBULINS 0.37 GM/DL (0.19-0.55); BETA-2-GLOBULINS % 5.1 % (3.2-6.5); GAMMA GLOBULIN % 14.6 % (11.1-18.8); GAMMA GLOBULINS 1.05 GM/DL (0.65-1.58)
== END ==
LOC: M PLALAB 14:48
PROVIDERS: ATTEND Psychiatry & Neurology Neurology
DX: R41.841 Cognitive communication deficit (principal); Z79.899 Other long term (current) drug therapy

== ENCOUNTER → 2021-11-10 | Outpatient (CLI) | payer MEDICARE, MEDICAID ==
[2021-11-10 14:04] LABS: BASO # 0.1 10^3/uL (0.0-0.2); BASO % 0.8 % (0.0-1.0); EOS # 0.1 10^3/uL (0.0-0.5); EOS % 1.9 % (0.0-3.0); HEMATOCRIT 42.6 % (36.0-47.0); HEMOGLOBIN 13.7 g/dl (12.0-15.5); LYMPH # 0.9 10^3/uL (1.5-5.0); LYMPH % 15.2 % (24.0-44.0); MEAN CORPUSCULAR HEMOGLOBIN 31.1 pg (27.0-33.0); MEAN CORPUSCULAR HGB CONC 32.2 g/dl (32.0-36.5); MEAN CORPUSCULAR VOLUME 96.8 fl (80.0-96.0); MONO # 0.5 10^3/uL (0.0-0.8); MONO % 8.1 % (2.0-8.0); NEUTROPHILS # 4.6 10^3/uL (1.5-8.5); NEUTROPHILS % 73.7 % (36.0-66.0); PLATELET COUNT, AUTOMATED 169 10^3/uL (150-450); WHITE BLOOD COUNT 6.2 10^3/uL (4.0-10.0)
[2021-11-10 14:26] LABS: HEMOGLOBIN A1c 6.4 %
[2021-11-10 14:38] LABS: ALBUMIN 3.8 GM/DL (3.2-5.2); ALT/SGPT 19 U/L (12-78); BILIRUBIN,TOTAL 0.6 MG/DL (0.2-1.0); BLOOD UREA NITROGEN 13 MG/DL (7-18); CALCIUM LEVEL 9.4 MG/DL (8.8-10.2); CARBON DIOXIDE LEVEL 30 MEQ/L (21-32); CHLORIDE LEVEL 109 MEQ/L (98-107); CHOLESTEROL LEVEL 201 MG/DL (<200); CHOLESTEROL RISK RATIO 3.465 (<5); FERRITIN 89 NG/ML (8-252); GLOMERULAR FILTRATION RATE > 60.0 (>32); GLUCOSE, FASTING 144 MG/DL (70-100); HDL CHOLESTEROL 58 MG/DL (>40); IRON (FE) 65 UG/DL (50-170); LDL CHOLESTEROL 116 MG/DL (<100); NON-HDL-C 143 MG/DL; PERCENT SATURATION 22.4 % (13.2-45.0); POTASSIUM SERUM 4.8 MEQ/L (3.5-5.1); SODIUM LEVEL 142 MEQ/L (136-145); TOTAL IRON BINDING CAPACITY 290 UG/DL (250-450); TOTAL PROTEIN 7.5 GM/DL (6.4-8.2); TRIGLYCERIDES LEVEL 133 MG/DL (<150)
[2021-11-10 14:45] LABS: CREATININE, URINE 64.5 MG/DL; MALB URINE SIEMENS 11.4 MG/L; MAU/CREAT RATIO 17.6 MCG/MG (0.0-30.0)
== END ==
LOC: M PLALAB 09:45
PROVIDERS: ATTEND Family Medicine
DX: E11.9 Type 2 diabetes mellitus without complications (principal); D50.9 Iron deficiency anemia, unspecified; E78.2 Mixed hyperlipidemia

== ENCOUNTER → 2022-04-01 | Outpatient (REF) | payer MEDICARE, MEDICAID ==
[~2022-04-01] MED LIST changes: +LEVO1TAB38 PO; -LEVO250T3 PO
[2022-04-01 13:10] LABS: BASO % 0.8 % (0.0-1.0); EOS # 0.1 10^3/uL (0.0-0.5); EOS % 1.6 % (0.0-3.0); HEMATOCRIT 40.9 % (36.0-47.0); HEMOGLOBIN 13.1 g/dl (12.0-15.5); LYMPH # 1.2 10^3/uL (1.5-5.0); LYMPH % 23.3 % (24.0-44.0); MEAN CORPUSCULAR HEMOGLOBIN 31.7 pg (27.0-33.0); MONO # 0.4 10^3/uL (0.0-0.8); MONO % 7.8 % (2.0-8.0); NEUTROPHILS # 3.3 10^3/uL (1.5-8.5); NEUTROPHILS % 66.1 % (36.0-66.0); PLATELET COUNT, AUTOMATED 186 10^3/uL (150-450); RED BLOOD COUNT 4.13 10^6/uL (4.00-5.40)
[2022-04-01 14:29] LABS: ALBUMIN 3.7 GM/DL (3.2-5.2); ALT/SGPT 28 U/L (12-78); BILIRUBIN,TOTAL 0.5 MG/DL (0.2-1.0); BLOOD UREA NITROGEN 11 MG/DL (7-18); CALCIUM LEVEL 9.3 MG/DL (8.8-10.2); CARBON DIOXIDE LEVEL 28 MEQ/L (21-32); CHLORIDE LEVEL 109 MEQ/L (98-107); CHOLESTEROL LEVEL 217 MG/DL (<200); CHOLESTEROL RISK RATIO 3.616 (<5); CREATININE FOR GFR 0.93 MG/DL (0.55-1.30); FERRITIN 95 NG/ML (8-252); GLOMERULAR FILTRATION RATE > 60.0 (>32); GLUCOSE, FASTING 149 MG/DL (70-100); HDL CHOLESTEROL 60 MG/DL (>40); IRON (FE) 80 UG/DL (50-170); LDL CHOLESTEROL 125 MG/DL (<100); NON-HDL-C 157 MG/DL; PERCENT SATURATION 25.4 % (13.2-45.0); POTASSIUM SERUM 4.6 MEQ/L (3.5-5.1); SODIUM LEVEL 142 MEQ/L (136-145); TOTAL IRON BINDING CAPACITY 315 UG/DL (250-450); TOTAL PROTEIN 7.3 GM/DL (6.4-8.2); TRIGLYCERIDES LEVEL 158 MG/DL (<150)
[2022-04-01 14:48] LABS: HEMOGLOBIN A1c 6.4 %
== END ==
LOC: M PLALAB 12:41
PROVIDERS: ATTEND Family Medicine
DX: E11.9 Type 2 diabetes mellitus without complications (principal); D50.9 Iron deficiency anemia, unspecified; E78.2 Mixed hyperlipidemia

== ENCOUNTER → 2022-07-15 | Outpatient (CLI) | payer MEDICARE, MEDICAID ==
[2022-07-15 15:09] LABS: ALBUMIN 3.6 G/DL (3.2-5.2); ALKALINE PHOSPHATASE 96 U/L (46-116); ALT/SGPT 27 U/L (7.0-40); AST/SGOT 22 U/L (<34); BILIRUBIN,TOTAL 0.3 MG/DL (0.3-1.2); BLOOD UREA NITROGEN 10 MG/DL (9-23); CALCIUM LEVEL 9.1 MG/DL (8.3-10.6); CARBON DIOXIDE LEVEL 29 MMOL/L (20-31); CHLORIDE LEVEL 110 MMOL/L (98-107); CHOLESTEROL LEVEL 179 MG/DL (<200); CHOLESTEROL RISK RATIO 3.36 (<5); GLOMERULAR FILTRATION RATE > 60.0 (>32); GLUCOSE, FASTING 127 MG/DL (74-106); HDL CHOLESTEROL 53.2 MG/DL (>40); LDL CHOLESTEROL 99.6 MG/DL (<100); NON-HDL-C 126 MG/DL; POTASSIUM SERUM 4.5 MMOL/L (3.5-5.1); SODIUM LEVEL 145 MMOL/L (136-145); TOTAL PROTEIN 6.7 G/DL (5.7-8.2); TRIGLYCERIDES LEVEL 131 MG/DL (<150)
[2022-07-15 15:10] LABS: BASO % 0.9 % (0.0-1.0); EOS # 0.1 10^3/uL (0.0-0.5); EOS % 2.9 % (0.0-3.0); HEMATOCRIT 40.5 % (36.0-47.0); HEMOGLOBIN 12.7 g/dl (12.0-15.5); LYMPH # 1.2 10^3/uL (1.5-5.0); LYMPH % 26.2 % (24.0-44.0); MEAN CORPUSCULAR HEMOGLOBIN 30.5 pg (27.0-33.0); MEAN CORPUSCULAR HGB CONC 31.4 g/dl (32.0-36.5); MEAN CORPUSCULAR VOLUME 97.4 fl (80.0-96.0); MONO # 0.4 10^3/uL (0.0-0.8); MONO % 8.4 % (2.0-8.0); NEUTROPHILS # 2.8 10^3/uL (1.5-8.5); NEUTROPHILS % 61.4 % (36.0-66.0); PLATELET COUNT, AUTOMATED 174 10^3/uL (150-450); RED BLOOD COUNT 4.16 10^6/uL (4.00-5.40); WHITE BLOOD COUNT 4.6 10^3/uL (4.0-10.0)
== END ==
LOC: M PLALAB 09:23
PROVIDERS: ATTEND Family Medicine
DX: E78.2 Mixed hyperlipidemia (principal); E11.9 Type 2 diabetes mellitus without complications

== ENCOUNTER → 2022-11-05 | Outpatient (CLI) | payer MEDICARE, MEDICAID ==
[2022-11-05 15:03] LABS: BASO % 0.4 % (0.0-1.0); EOS % 0.9 % (0.0-3.0); HEMOGLOBIN 11.2 g/dl (12.0-15.5); LYMPH # 0.9 10^3/uL (1.5-5.0); LYMPH % 20.1 % (24.0-44.0); MEAN CORPUSCULAR HEMOGLOBIN 30.6 pg (27.0-33.0); MEAN CORPUSCULAR HGB CONC 31.1 g/dl (32.0-36.5); MEAN CORPUSCULAR VOLUME 98.4 fl (80.0-96.0); MONO # 0.4 10^3/uL (0.0-0.8); NEUTROPHILS # 3.2 10^3/uL (1.5-8.5); NEUTROPHILS % 70.4 % (36.0-66.0); PLATELET COUNT, AUTOMATED 167 10^3/uL (150-450); RED BLOOD COUNT 3.66 10^6/uL (4.00-5.40); WHITE BLOOD COUNT 4.5 10^3/uL (4.0-10.0)
[2022-11-05 15:16] LABS: HEMOGLOBIN A1c 5.7 % (4.0-6.0)
[2022-11-05 15:32] LABS: CREATININE, URINE 99.4 MG/DL
[2022-11-05 15:33] LABS: ALBUMIN 3.9 G/DL (3.2-5.2); ALKALINE PHOSPHATASE 105 U/L (46-116); ALT/SGPT 22 U/L (7.0-40); AST/SGOT 21 U/L (<34); BILIRUBIN,TOTAL 0.4 MG/DL (0.3-1.2); BLOOD UREA NITROGEN 10 MG/DL (9-23); CALCIUM LEVEL 8.4 MG/DL (8.3-10.6); CARBON DIOXIDE LEVEL 27 MMOL/L (20-31); CHLORIDE LEVEL 106 MMOL/L (98-107); CHOLESTEROL LEVEL 167 MG/DL (<200); CHOLESTEROL RISK RATIO 3.15 (<5); CREATININE FOR GFR 0.83 MG/DL (0.55-1.30); GLOMERULAR FILTRATION RATE > 60.0 (>32); GLUCOSE, FASTING 107 MG/DL (74-106); HDL CHOLESTEROL 52.9 MG/DL (>40); IRON (FE) 44 UG/DL (50-170); LDL CHOLESTEROL 93.1 MG/DL (<100); NON-HDL-C 114.1 MG/DL; PERCENT SATURATION 13.8 % (13.2-45.0); POTASSIUM SERUM 4.5 MMOL/L (3.5-5.1); SODIUM LEVEL 141 MMOL/L (136-145); TOTAL IRON BINDING CAPACITY 320 UG/DL (250-425); TRIGLYCERIDES LEVEL 105 MG/DL (<150)
[2022-11-05 15:35] LABS: THYROID STIMULATING HORMONE 1.549 uIU/ML (0.55-4.78)
[2022-11-05 15:36] LABS: FREE T4 1.02 NG/DL (0.89-1.76)
== END ==
LOC: M PLALAB 09:58
PROVIDERS: ATTEND Family Medicine
DX: D50.9 Iron deficiency anemia, unspecified (principal); E11.9 Type 2 diabetes mellitus without complications; E78.2 Mixed hyperlipidemia

== ENCOUNTER → 2022-11-15 | Outpatient (CLI) | payer MEDICARE, MEDICAID ==
[~2022-11-15] MED LIST changes: +GASTROGRAFIN SOLUTION 30ML As Ordered ONE; +ISOVUE-370 76% 100ML VIAL As Ordered ONE
== END ==
LOC: M RAD 06:44
PROVIDERS: ATTEND Family Medicine
DX: R19.7 Diarrhea, unspecified (principal); R10.12 Left upper quadrant pain; R63.4 Abnormal weight loss
CPT/HCPCS: 74177; Q9963; Q9967

== ENCOUNTER 2022-11-16 15:13 | Emergency (ER) | payer MEDICARE, MEDICAID ==
[~2022-11-16] VITALS: Ht 162.6 cm; Wt 61.8 kg
[~2022-11-16 15:13] MED LIST changes: -GASTROGRAFIN SOLUTION 30ML As Ordered ONE; -ISOVUE-370 76% 100ML VIAL As Ordered ONE
[2022-11-16 18:13] LABS: BASO % 0.4 % (0.0-1.0); EOS # 0.1 10^3/uL (0.0-0.5); EOS % 0.7 % (0.0-3.0); HEMATOCRIT 35.8 % (36.0-47.0); HEMOGLOBIN 11.5 g/dl (12.0-15.5); LYMPH # 1.1 10^3/uL (1.5-5.0); LYMPH % 15.3 % (24.0-44.0); MEAN CORPUSCULAR HEMOGLOBIN 31.3 pg (27.0-33.0); MEAN CORPUSCULAR HGB CONC 32.1 g/dl (32.0-36.5); MEAN CORPUSCULAR VOLUME 97.3 fl (80.0-96.0); MONO # 0.4 10^3/uL (0.0-0.8); MONO % 4.9 % (2.0-8.0); NEUTROPHILS # 5.5 10^3/uL (1.5-8.5); NEUTROPHILS % 78.3 % (36.0-66.0); PLATELET COUNT, AUTOMATED 173 10^3/uL (150-450); RED BLOOD COUNT 3.68 10^6/uL (4.00-5.40); WHITE BLOOD COUNT 7.1 10^3/uL (4.0-10.0)
[2022-11-16 18:15] LABS: C REACTIVE PROTEIN QUANTITATIV < 0.40 MG/DL (<1.0)
[2022-11-16 18:16] LABS: INR 0.96
[2022-11-16 18:17] LABS: PARTIAL THROMBOPLASTIN TIME 25.4 SECONDS (24.8-34.2)
[2022-11-16 18:21] LABS: ALBUMIN 3.8 G/DL (3.2-5.2); ALKALINE PHOSPHATASE 104 U/L (46-116); ALT/SGPT 23 U/L (7.0-40); AST/SGOT 44 U/L (<34); BILIRUBIN,DIRECT < 0.1 MG/DL (<0.4); BILIRUBIN,TOTAL 0.3 MG/DL (0.3-1.2); BLOOD UREA NITROGEN 7 MG/DL (9-23); CALCIUM LEVEL 8.8 MG/DL (8.3-10.6); CARBON DIOXIDE LEVEL 27 MMOL/L (20-31); CHLORIDE LEVEL 107 MMOL/L (98-107); CREATININE FOR GFR 0.78 MG/DL (0.55-1.30); GLOMERULAR FILTRATION RATE > 60.0 (>32); GLUCOSE, FASTING 95 MG/DL (74-106); LIPASE 71 U/L (12-53); POTASSIUM SERUM 5.4 MMOL/L (3.5-5.1); SODIUM LEVEL 139 MMOL/L (136-145); TOTAL PROTEIN 7.2 G/DL (5.7-8.2)
[2022-11-16] MEDS ORDERED: NS 1,000 ML IV ONE (18:30)
[2022-11-16 18:31] LABS: RSV AMPLIFICATION NEGATIVE (NEGATIVE)
[2022-11-16] MEDS ORDERED: ISOVUE-370 76% 100ML VIAL As Ordered ONE (18:31)
[2022-11-16 18:38] LABS: ERYTHROCYTE SEDIMENTATION RATE 27 mm/hr (0-30)
[2022-11-16 18:58] VITALS: BP 160/73
[2022-11-18] MEDS ORDERED: CEPH500C PO (14:02)
== END 2022-11-16 19:59 | disposition home or self-care (01) ==
LOC: M ED 15:13
DX: R10.9 Unspecified abdominal pain (principal); C79.51 Secondary malignant neoplasm of bone; I10 Essential (primary) hypertension; E11.9 Type 2 diabetes mellitus without complications; K21.9 Gastro-esophageal reflux disease without esophagitis; K58.9 Irritable bowel syndrome, unspecified; C50.919 Malignant neoplasm of unspecified site of unspecified female breast; E78.5 Hyperlipidemia, unspecified; Z79.899 Other long term (current) drug therapy
CPT/HCPCS: 36415; 71275; 80048; 80076; 81001; 83605; 83690; 83880; 85025; 85610; 85652; 85730; 86140; 87040; 87088; 87186; 87631; 93005; 99284; Q9967

== ENCOUNTER → 2022-12-10 | Outpatient (CLI) | payer MEDICARE, MEDICAID ==
[~2022-12-10] MED LIST changes: +CEPH500C PO; +DONE10TA90; +LOSA25TA13
== END ==
LOC: M PLAIMG 11:50
PROVIDERS: ATTEND Family Medicine
DX: M89.9 Disorder of bone, unspecified (principal)

== ENCOUNTER → 2022-12-23 | Outpatient (CLI) | payer MEDICARE, MEDICAID | LOC: M CARPUL 08:18 | PROVIDERS: ATTEND Family Medicine | DX: I50.812 Chronic right heart failure (principal) ==

== ENCOUNTER → 2022-12-27 | Outpatient (CLI) | payer MEDICARE, MEDICAID ==
[~2022-12-27] MED LIST changes: +CARV3.12 PO; +DICL100G10 TOP; -DICL1GEL3 TOP; +DICY-61 PO; -DICY10CA13 PO; -DONE10TA90; +DONE10TA90 PO; +DRON2.5C11 PO; +HYDR-3716 PO; -LOSA25TA13; +LOSA25TA13 PO
== END ==
LOC: M PLARAD 13:36
PROVIDERS: ATTEND Internal Medicine Hematology & Oncology
DX: C79.51 Secondary malignant neoplasm of bone (principal); Z85.3 Personal history of malignant neoplasm of breast
CPT/HCPCS: 78815; A9552